=== PATIENT | female | born 1955 | race Caucasian/White ===

== ENCOUNTER 2020-11-16 08:24 | Emergency (ER) | payer MEDICARE, SELFPAY ==
--- NOTE | ~2020-11-16 | US_ITS ---
EXAMINATION: US venous doppler [facility] DATE: 11/16/2020 08:54 INDICATION: Left lower limb pain. TECHNIQUE: Grayscale ultrasound images without and with compression and Doppler ultrasound images of the left lower extremity veins were obtained. COMPARISON: None. FINDINGS: The visualized portions of left common femoral vein, profunda (deep) femoral vein, femoral vein, popl iteal vein, peroneal veins, posterior tibial veins, and greater saphenous vein outflow are patent. Th ere is a small Hutchison's cyst. IMPRESSION: 1. No deep venous thrombosis. 2. Small left Hutchison's cyst. Reviewed, dictated and finalized at location A.
--- NOTE | ~2020-11-16 | XR_ITS ---
EXAMINATION: XR knee LT 3V DATE: 11/16/2020 09:01 INDICATION: Nontraumatic anterior left knee pain TECHNIQUE: Anteroposterior, oblique and crosstable lateral views of the left knee were obtained COMPARISON: 04/02/2019 FINDINGS: Alignment is normal. No fracture. Tricompartmental osteoarthritis with marginal osteophytes in all 3 compartments. Moderate joint space narrowing is demonstrated at the medial compartment although there appears to be some remodeling of the articular surfaces of the medial femoral condyle and medial tib ial plateau suggesting this is likely severe with weightbearing. Moderate-sized left knee joint effus ion without layering lipohemarthrosis. Soft tissues are otherwise unremarkable. IMPRESSION: 1. Left knee tricompartmental osteoarthritis, advanced in the medial compartment with moderate-sized joint effusion. Reviewed, dictated and finalized at location A. IMPRESSION: 1. Left knee tricompartmental osteoarthritis, advanced in the medial compartmen t with moderate-sized joint effusion.
[2020-11-16 08:30] VITALS: BP 160/80; PULSE 99; RESP 18; TEMP 36.7; O2SAT 99
--- NOTE | 2020-11-16 08:56 | ED.LOWEXIN ---
HPI - Extremity Injury (Lower) General Chief Complaint: Extremity Injury, Lower Stated Complaint: left knee pain Time Seen by Provider: 11/16/20 08:26 History of Present Illness HPI Narrative: Patient is a 65-year-old female who presents ER with left knee pain. Reports history of chronic knee pain but was getting out of bed and had sudden increase in her pain today. She is concerned she may have a blood clot in her leg. No lower extremity swelling. No chest pain or shortness of breath. She has discomfort in both anterior and posterior aspects of the knee as well as the mid thigh. No known trauma. No recent surgery. Has not tried any pain medication. Pain is of the knee is worse with flexion and extension. Related Data Home Medications Medication Instructions Recorded Confirmed aspirin 81 mg tablet,delayed 81 mg PO DAILY 03/20/19 12/24/19 release multivitamin 1 tablet PO DAILY 03/20/19 12/24/19 syringe with needle, safety 3 mL #50 each 03/20/19 12/24/19 25 gauge x 1 Allergies Allergy/AdvReac Type Severity Reaction Status Date / Time No Known Allergies Allergy Verified 06/25/20 09:31 Review of Systems Constitutional: Constitutional: Denies chills, Denies fever(s) and Denies weakness Cardiovascular: Cardiovascular: Denies chest pain and Denies radiating jaw, neck or arm pain Respiratory: Respiratory: Denies cough and Denies dyspnea Musculoskeletal: Musculoskeletal: Reports arthralgias, Denies joint swelling and Denies muscle cramps Neurologic: Denies focal weakness and Denies numbness PMF Past Medical History Medical History (Updated 11/16/20 @ 09:57 by Zhen Durham MD) Adult hypothyroidism Benign essential hypertension CKD (chronic kidney disease) stage 3, GFR 30-59 ml/min Diabetes Dyslipidemia Hx of colonic polyps Surgical History Surgical History (Updated 11/16/20 @ 09:00 by Zhen Durham MD) History of colonoscopy Family History Family History Father Family history of pancreatic cancer Mother Family history of heart disease in male family member before age 55 Other Family history of cardiovascular disease Family history of malignant neoplasm Social History Social History Smoking status: Never smoker Alcohol intake: never Exam Narrative: Exam Narrative: GENERAL: Well-appearing, well-nourished, and in no acute distress. HEAD: Normocephalic, atraumatic. EXTREMITIES: Focused exam of left lower extremity reveals limited left knee flexion with tenderness over the anterior aspect inferior to the patella. There is also pain with varus and valgus stressing of the knee. Normal dorsalis pedis and posterior tibial pulses. Mild discomfort along the medial thigh with palpation. Mild discomfort with palpation of posterior knee with slight swelling which may represent cyst. Trace edema. SKIN: Warm, dry, no rash. NEURO: Alert and oriented x3. PSYCH: Normal mood and affect. Course Course Emergency Course: Patient informed of diagnosis and treatment plan. Will give orthopedic follow-up. Discharge home. Vital Signs Vital signs: Vital Signs Temperature 98.0 F 11/16/20 08:30 Pulse Rate 99 11/16/20 08:30 Respiratory Rate 18 11/16/20 08:30 Blood Pressure 160/80 H 11/16/20 08:30 Pulse Oximetry 99 11/16/20 08:30 Temperature 98.0 F 11/16/20 08:30 Pulse Rate 76 11/16/20 09:51 Respiratory Rate 14 11/16/20 09:51 Blood Pressure 146/68 H 11/16/20 09:51 Pulse Oximetry 96 11/16/20 09:51 MDM - Extremity Injury (Lower) Imaging Data Radiologist's impression: ITS Impressions Venous Doppler Study 11/16/20 08:55 IMPRESSION: 1. No deep venous thrombosis. 2. Small left Hutchison's cyst. Knee X-Ray 11/16/20 09:04 IMPRESSION: 1. Left knee tricompartmental osteoarthritis, advanced in the medial compartment with moderate-s
[2020-11-16] MEDS: IBUPROFEN 600 MG TABLET PO (09:10)
[2020-11-16 09:51] VITALS: BP 146/68; PULSE 76; RESP 14; O2SAT 96
[2020-11-16 10:10] VITALS: BP 129/59; PULSE 73; RESP 18; O2SAT 96
== END 2020-11-16 10:11 | disposition home or self-care (01) ==
PROVIDERS: Emergency Provider Emergency Medicine; PCP Internal Medicine
DX: M71.22 Synovial cyst of popliteal space [Baker], left knee (principal); M17.12 Unilateral primary osteoarthritis, left knee; E03.9 Hypothyroidism, unspecified; I12.9 Hypertensive chronic kidney disease with stage 1 through stage 4 chronic kidney disease, or unspecified chronic kidney disease; E11.22 Type 2 diabetes mellitus with diabetic chronic kidney disease; N18.30 Chronic kidney disease, stage 3 unspecified; Z79.82 Long term (current) use of aspirin; M79.605 Pain in left leg
CPT/HCPCS: 73562; 93971; 99284; A9270

== ENCOUNTER 2021-01-26 13:08 | Outpatient (CLI) | payer MEDICARE, SELFPAY ==
--- NOTE | ~2021-01-26 | NM_ITS ---
EXAMINATION: NM parathyroid imaging w spect DATE: 01/27/2021 07:17 INDICATION: Hyperparathyroidism, unspecified. TECHNIQUE: 19.2 mCi Tc99m sestamibi was administered intravenously. Anterior images of the neck were obtained immediately and at 2 hours. SPECT images of the neck were obtained. COMPARISON: None. FINDINGS: There is focal asymmetric persistent increased activity in the area of inferior right thyro id lobe. IMPRESSION: 1. Focal asymmetric persistent increased activity in the area of inferior right thyroid lobe suspicio us for parathyroid adenoma. Reviewed, dictated and finalized at location A. IMPRESSION: 1. Focal asymmetric persistent increased activity in the area of inferior right thyroid lobe suspicious for parathyroid adenoma.
== END 2021-01-26 13:09 | disposition home or self-care (01) ==
PROVIDERS: PCP Internal Medicine; Visit Provider Internal Medicine
DX: E21.3 Hyperparathyroidism, unspecified (principal)
CPT/HCPCS: 78071; A9500

== ENCOUNTER 2021-02-08 15:11 | Outpatient (CLI) | payer MEDICARE, SELFPAY ==
[2021-02-08 16:00] LABS: Calcium 10.7 mg/dL (8.4-10.2)
[2021-02-08 16:10] LABS: Parathyroid Intact 100.5 pg/mL (7.5-53.5)
[2021-02-08 16:54] LABS: Vitamin D 25 Hydroxy 46.8 ng/mL
== END 2021-02-08 15:12 | disposition home or self-care (01) ==
LOC: ANHLAB 15:18
PROVIDERS: PCP Internal Medicine
DX: E21.3 Hyperparathyroidism, unspecified (principal)
CPT/HCPCS: 36415; 82306; 82310; 83970

== ENCOUNTER 2021-03-22 10:35 | Outpatient (CLI) | payer MEDICARE, SELFPAY ==
[2021-03-22 11:41] LABS: Calcium 8.7 mg/dL (8.4-10.2)
== END 2021-03-22 10:36 | disposition home or self-care (01) ==
LOC: ANHLAB 10:39
PROVIDERS: PCP Internal Medicine
DX: E21.3 Hyperparathyroidism, unspecified (principal)
CPT/HCPCS: 36415; 82310

== ENCOUNTER 2021-09-12 09:17 | Outpatient (CLI) | payer MEDICARE, SELFPAY ==
[2021-09-12 09:59] LABS: Calcium 8.9 mg/dL (8.4-10.2)
[2021-09-12 10:10] LABS: Parathyroid Intact 62.8 pg/mL (7.5-53.5)
[2021-09-12 11:29] LABS: Vitamin D 25 Hydroxy 45.1 ng/mL
== END 2021-09-12 09:18 | disposition home or self-care (01) ==
PROVIDERS: PCP Internal Medicine
DX: E21.3 Hyperparathyroidism, unspecified (principal); E21.2 Other hyperparathyroidism
CPT/HCPCS: 36415; 82306; 82310; 83970

== ENCOUNTER 2023-08-21 13:39 | Outpatient (CLI) | payer MEDICARE, SELFPAY ==
--- NOTE | ~2023-08-21 | DEXA_ITS ---
Bone Density Report Name: CYNTHIA CASTILLO Age: 68 Sex: Female Ethnicity: White Date of : 1955 Indication: postmenopausal; screening for osteoporosis; height loss; history of glucocorticoids; Referring Provider: RITA REYES Study: Bone densitometry was performed. Exam Date: August 21, 2023 Accession number: [id number] Bone Density: Region BMD T-score Z-score Classification AP Spine(L1-L4) 1.145 0.9 3.0 Normal Femoral Neck (Left) 0.775 -0.7 1.2 Normal Total Hip (Left) 0.910 -0.3 1.3 Normal Femoral Neck (Right) 0.623 -2.0 -0.2 Osteopenia Total Hip (Right) 0.956 0.1 1.6 Normal Total Hip Mean 0.933 -0.1 1.5 Normal World Health Organization criteria for BMD impression classify patients as: Normal (T-score at or above -1.0), Osteopenia (T-score between -1.0 and -2.5), or Osteoporosis (T-score at or below -2.5). 10-year Fracture Risk(1): Major Osteoporotic Fracture 15% Hip Fracture 3.0% Reported Risk Factors: [place] (), Neck BMD=0.623, BMI=50.4, glucocorticoids (1) FRAX(R) Version 3.08. Fracture probability calculated for an untreated patient. Fracture probability may be lower if the patient has received treatment. Clinical Information Provided by Patient: Has taken Glucocorticoids Has used the following medications: Vitamin D, Calcium Patient maximum height was 61 Menopause Age: 48 No regular weight bearing exercise Drinks caffeinated beverages Onset of menses at age 11 Number of children 2 Impression: The patient has low bone mass, based on the Right Femoral Neck T-score. The patient has an estimated ten-year risk of hip fracture of 3% and an estimated ten-year risk of major fracture of 15%, based on the WHO FRAX algorithm. The patient has risk factors, including: history of glucocorticoid therapy. Discussion: BONE DENSITY IS LOW AT ONE OR MORE SKELETAL SITES. THE PATIENT'S BMD AND CLINICAL RISK FACTORS CONTRIBUTE TO THIS PATIENT'S INCREASED RISK OF FRACTURE. This patient's lowest T-score is low at one or more skeletal sites. It meets the World Health Organization's (WHO) criteria for ?low bone mass? (T-score between -1.0 and -2.5). The patient's 10-year risk of hip fracture as calculated by FRAX exceeds the threshold where pharmacological therapy is recommended by the National Osteoporosis Foundation (NOF). However, all treatment decisions require clinical judgment and consideration of individual patient factors, including patient preferences, comorbidities, previous drug use, risk factors not captured in the FRAX model (e.g., frailty, falls, vitamin D deficiency, increased bone turnover, interval significant decline in bone density) and possible under or overestimation of fracture risk by FRAX. The patient should follow a healthful lifestyle (good nu
== END 2023-08-21 13:40 | disposition home or self-care (01) ==
PROVIDERS: PCP Nurse Practitioner; Visit Provider Nurse Practitioner
DX: Z78.0 Asymptomatic menopausal state (principal)
CPT/HCPCS: 77080

== ENCOUNTER 2023-09-12 02:29 | Day surgery (SDC) | payer MEDICARE, SELFPAY ==
[2023-08-27 15:43] VITALS: BMI 50.5
[2023-09-12 09:45] VITALS: BP 176/81; PULSE 112; RESP 20; TEMP 36.4; O2SAT 98
[2023-09-12] MEDS: LACTATED RINGERS 1,000 ML 150 ML IV CONT (09:55)
[2023-09-12 09:57] LABS: Glucose Point of Care 121 mg/dl (65-105)
--- NOTE | 2023-09-12 10:28 | WPDANESEPPF ---
Anes - Initial Pre Proc Eval Procedure: Operation Date: 09/12/23 11:00 Proposed Procedures p Colonoscopy - Wang Espinoza MD Date/Time: 09/12/23 10:28 Surgeon: Wang Epsinoza MD Pre Op Diagnosis: MARYAM Patient Data Age: 68 Gender: F Height: 1.52 m Weight: 111.5 kg Last Vital Signs Temp 97.6 F 09/12/23 09:45 Pulse 112 H 09/12/23 09:45 Resp 20 09/12/23 09:45 BP 176/81 H 09/12/23 09:45 Pulse Ox 98 09/12/23 09:45 O2 Del Method Room Air 09/12/23 09:45 Allergies Allergy/AdvReac Type Severity Reaction Status Date / Time No Known Allergies Allergy Verified 09/12/23 09:44 Home Medications Medication Instructions Recorded Confirmed Type aspirin 81 mg tablet,delayed 81 mg PO DAILY 03/20/19 09/09/23 History release (Aspir-Low) blood sugar diagnostic #300 ea 07/12/21 09/09/23 Rx calcium carbonate 1,000 mg PO DAILY 01/18/22 09/09/23 History cholecalciferol (vitamin D3) 50 50 mcg PO DAILY 01/18/22 09/09/23 History mcg (2,000 unit) tablet verapamil 360 mg 24 hr See Rx Instructions .Route 12/25/22 09/09/23 Rx capsule,extended release .COMPLEX #100 caps metoprolol succinate 25 mg See Rx Instructions .Route 03/26/23 09/09/23 Rx tablet,extended release 24 hr .COMPLEX #100 tabs semaglutide 7 mg tablet 7 mg PO DAILY #90 tabs 06/04/23 09/09/23 Rx ferrous sulfate 324 mg (65 mg 324 mg PO BID #60 tabs 08/14/23 09/09/23 Rx iron) tablet,delayed release levothyroxine 100 mcg tablet 100 mcg PO DAILY #100 tabs 08/14/23 09/09/23 Rx losartan 100 mg tablet 100 mg PO DAILY #90 tabs 08/14/23 09/09/23 Rx metformin 1,000 mg tablet See Rx Instructions .Route 08/14/23 09/09/23 Rx .COMPLEX #90 tabs rosuvastatin 5 mg tablet See Rx Instructions .Route 08/14/23 09/09/23 Rx .COMPLEX #100 tabs Laboratory Tests 09/12/23 09:49 POC Capillary Glucose 121 H mg/dl (65-105) Patient hx anesthesia problems: none Family hx anesthesia problems: none Results Review: All pre-operative results and documents have been reviewed as part of the pre-operative evaluation. [facility] Past Medical History Medical History Adult hypothyroidism Benign essential hypertension CKD (chronic kidney disease) stage 3, GFR 30-59 ml/min Diabetes Dyslipidemia Hx of colonic polyps Hyperparathyroidism Screening mammogram, encounter for Surgical History Surgical History (Updated 08/31/23 @ 08:40 by Sue Kim CMA) H/O parathyroidectomy (03/08/21) History of History of colonoscopy History of gastric surgery History of hernia repair Family History Family History Father Family history of pancreatic cancer Mother Family history of heart disease in male family member before age 55 Other Family history of cardiovascular disease Family history of malignant neoplasm Social History Social History Smoking status: Never smoker Second hand tobacco smoke exposure: No Alcohol intake: never Substance use: never Substance use type: does not use Do You Feel Safe in your Home?: Yes Lack of Transportation: No Lack of Food: Never True Current Housing: I Have Housing Concerned About Future Housing: No Difficulty Paying Gas/Electric Bills: No Difficulty Paying for Meds: No Currently Unemployed: No Education: High School Diploma/GED Difficulty w/ Childcare or Family Care: No Living arrangements: with family Additional living arrangements comments: Occupation/Education: retired Gender identity (if verbalized by the patient): Female Sexual Orientation (if Verbalized by the Patient): Straight or Heterosexual Spiritual care concerns: No Anes - Eval Final PreProcedure Day of Procedure 09/12/23 10:28 Patient weight: morbidly obese Heart: re
--- NOTE | 2023-09-12 10:48 | PM.HPGS ---
History of Present Illness History of Present Illness Consent: Risks, benefits, and alternatives have been discussed and questions answered. Patient agrees to proceed with procedure. Chief complaint: MARYAM Narrative: Kate Agudelo is a 68 year old female here for colon screening, last one 2017 Review of Systems Review of Systems: All systems reviewed & are unremarkable except as noted in HPI and below PMFSH Past Medical History Medical History Adult hypothyroidism Benign essential hypertension CKD (chronic kidney disease) stage 3, GFR 30-59 ml/min Diabetes Dyslipidemia Hx of colonic polyps Hyperparathyroidism Screening mammogram, encounter for Surgical History Surgical History (Updated 08/31/23 @ 08:40 by Sue Kim CMA) H/O parathyroidectomy (03/08/21) History of History of colonoscopy History of gastric surgery History of hernia repair Family History Family History Father Family history of pancreatic cancer Mother Family history of heart disease in male family member before age 55 Other Family history of cardiovascular disease Family history of malignant neoplasm Social History Social History Smoking status: Never smoker Second hand tobacco smoke exposure: No Alcohol intake: never Substance use: never Substance use type: does not use Do You Feel Safe in your Home?: Yes Lack of Transportation: No Lack of Food: Never True Current Housing: I Have Housing Concerned About Future Housing: No Difficulty Paying Gas/Electric Bills: No Difficulty Paying for Meds: No Currently Unemployed: No Education: High School Diploma/GED Difficulty w/ Childcare or Family Care: No Living arrangements: with family Additional living arrangements comments: Occupation/Education: retired Gender identity (if verbalized by the patient): Female Sexual Orientation (if Verbalized by the Patient): Straight or Heterosexual Spiritual care concerns: No Meds Home Medications and Allergies Home Medications Medication Instructions Recorded Confirmed Type aspirin 81 mg tablet,delayed 81 mg PO DAILY 03/20/19 09/09/23 History release (Aspir-Low) blood sugar diagnostic #300 ea 07/12/21 09/09/23 Rx calcium carbonate 1,000 mg PO DAILY 01/18/22 09/09/23 History cholecalciferol (vitamin D3) 50 50 mcg PO DAILY 01/18/22 09/09/23 History mcg (2,000 unit) tablet verapamil 360 mg 24 hr See Rx Instructions .Route 12/25/22 09/09/23 Rx capsule,extended release .COMPLEX #100 caps metoprolol succinate 25 mg See Rx Instructions .Route 03/26/23 09/09/23 Rx tablet,extended release 24 hr .COMPLEX #100 tabs semaglutide 7 mg tablet 7 mg PO DAILY #90 tabs 06/04/23 09/09/23 Rx ferrous sulfate 324 mg (65 mg 324 mg PO BID #60 tabs 08/14/23 09/09/23 Rx iron) tablet,delayed release levothyroxine 100 mcg tablet 100 mcg PO DAILY #100 tabs 08/14/23 09/09/23 Rx losartan 100 mg tablet 100 mg PO DAILY #90 tabs 08/14/23 09/09/23 Rx metformin 1,000 mg tablet See Rx Instructions .Route 08/14/23 09/09/23 Rx .COMPLEX #90 tabs rosuvastatin 5 mg tablet See Rx Instructions .Route 08/14/23 09/09/23 Rx .COMPLEX #100 tabs Allergies Allergy/AdvReac Type Severity Reaction Status Date / Time No Known Allergies Allergy Verified 09/12/23 09:44 Vital Signs Vital Signs - 24 hr 09/12/23 09:45 Temperature 97.6 F Pulse Rate 112 H Respiratory Rate 20 Blood Pressure 176/81 H Pulse Oximetry 98 Oxygen Delivery Room Air Exam Const: General: comfortable and no acute distress HENMT: Face/Nose/Sinus: Normal nares present Eyes: General: appearance normal, both eyes and all related structures Neck: Neck: no JVD Resp: Auscultation: clear to auscultation bilaterally Cardio: Rate: regular
[2023-09-12 11:20] VITALS: BP 94/50; PULSE 87; RESP 23; O2SAT 98
[2023-09-12 11:30] VITALS: BP 115/64; PULSE 83; RESP 22; O2SAT 98
[2023-09-12 11:40] VITALS: BP 149/63; PULSE 81; RESP 24; O2SAT 100
== END 2023-09-12 11:52 | disposition home or self-care (01) ==
PROVIDERS: PCP Nurse Practitioner; Visit Provider Internal Medicine Gastroenterology
PROC: 0DJD8ZZ Inspection of Lower Intestinal Tract, Via Natural or Artificial Opening Endoscopic (ICD-10-PCS; CPT 45378; principal; 2023-09-12 11:00)
DX: Z12.11 Encounter for screening for malignant neoplasm of colon (principal); D12.5 Benign neoplasm of sigmoid colon; K64.8 Other hemorrhoids; D50.9 Iron deficiency anemia, unspecified; E03.9 Hypothyroidism, unspecified; I12.9 Hypertensive chronic kidney disease with stage 1 through stage 4 chronic kidney disease, or unspecified chronic kidney disease; E11.22 Type 2 diabetes mellitus with diabetic chronic kidney disease; N18.30 Chronic kidney disease, stage 3 unspecified; E21.3 Hyperparathyroidism, unspecified; Z79.85 Long-term (current) use of injectable non-insulin antidiabetic drugs; Z79.84 Long term (current) use of oral hypoglycemic drugs; Z79.82 Long term (current) use of aspirin; E66.01 Morbid (severe) obesity due to excess calories; Z68.42 Body mass index [BMI] 45.0-49.9, adult
CPT/HCPCS: 45385; 82948; 88305; J2704; J7120

== ENCOUNTER 2024-04-19 10:13 | Outpatient (CLI) | payer MEDICARE, SELFPAY ==
--- NOTE | ~2024-04-19 | MM_ITS ---
EXAMINATION: MM screening barbara BI w ehsan HISTORY: Screening TECHNIQUE: Craniocaudal and mediolateral oblique 3-D tomosynthesis images were obtained and synthetic 2-D images were generated. CAD analysis was submitted and interpreted. COMPARISON: No prior mammogram is available for comparison at this institution. BREAST PARENCHYMAL COMPOSITION: Not Dense: The breasts are almost entirely fatty. FINDINGS: There is no evidence of suspicious mass, calcification, or architectural distortion to sugg est malignancy in either breast. There has been no suspicious interval change. IMPRESSION: 1. No mammographic evidence of malignancy. 2. Recommend routine screening mammography in one year. BI-RADS Category 1: Negative Reviewed, dictated and finalized at location B. 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
--- OUTSIDE RECORDS SUMMARY | 2024-04-23 03:56 | XMS_ITS | Encounter Summary ---
Author Organization [facility] Address [address] [place] [address] Care Team Providers Care Apparatus Operator Name Role Phone Justin Olvera MD Primary Care Provider [phone] Encounter Details Date Type Department Care Team (Latest Contact Info) Description 09/20/2021 Orders Only [facility] [address] [place] [id number] [place] [id number] [address] [facility] [address] [place] [id number] Hyperparathyroidism (Primary Dx) Social History Tobacco Use Types Packs/Day Years Used Date Smoking Tobacco: Never Smokeless Tobacco: Never Alcohol Use Standard Drinks/Week Comments Never 0 (1 standard drink = 0.6 oz pur e alcohol) Sex and Gender Information Value Date Recorded Sex Assigned at Not on file Gender Identity Not on file Sexual Orientation Not on file documented as of this encounter Plan of Treatment Not on file documented as of this encounter Visit Diagnoses Diagnosis Hyperparathyroidism- Primary Hyperparathyroidism, unspecified documented in this encounter Care Teams Apparatus Operator Relationship Specialty Start Date End Date Justin Olvera MD [address] [place] [id number] PCP - General Internal Medicine 02/18/21 documented as of this encounter
--- OUTSIDE RECORDS SUMMARY | 2024-04-23 03:56 | XMS_ITS | Encounter Summary ---
Author Organization [facility] Address [address] [place] [address] Care Team Providers Care Manager Plant Name Role Phone Justin Olvera MD Primary Care Provider [phone] Reason for Visit * Auth/Cert Specialty Diagnoses / Procedures Referred By Francine t Referred To Contact Diagnoses [place] [id number] [facility] [address] [place] [address] Referral ID Status Reason Start Date Expiration Date Visits Re quested Visits Authorized [id number] 02/14/2021 1 1 Encounter Details Date Type Department Care Team (Late st Contact Info) Description 03/08/2021 11:00 AM CDT - 03/08/2021 2:30 PM CDT Surgery [facility] Operating Room [address] [place] [address] [place] [id number] [address] [facility] [address] [place] [address] RIGHT MINIMALLY INVASIVE PARATHYROIDECTOMY WITH INTRAOPERATIVE RECURRENT LARYNGEAL NERVE MONITORING WITH INTRAOPERATIVE PARATHYROID HORMONE MONITORING Surgery Details Date/Time Status Location OR Service Patient Class Case Class Case Type Trauma Case? 03/08/2021 11:00 AM Posted [facility] OR OR 22 General Surgery Surgical OP/Extended Care Elective No Panel 1 Procedure LRB Anes Op Region Wound Class Comments RIGHT MINIMALLY INVASIVE PARATHYROIDECTOMY WITH INTRAOPERATIVE RECURRENT LARYNGEAL NERVE MONITORING WITH INTRAOPERATIVE PARATHYROID HORMONE MONITORING Right General Neck Clean-I Surgeon Surgeon Role Service Panel Nathalia Tello MD Primary General Surgery 1 Special Needs RECURRENT LARYNGEAL NERVE MONITORING PT'S INSURANCE [employer] MEDICARE ADVANTAGE. LINK'D PER PEPPER [id number] MONITORING LINK'D WITH [place] MARISOL'D PER PEPPER NOTIFIED PSA AND [place] OF DATE CHANGE. documented in this encounter Social History Tobacco Use Types Packs/Day Years Used Date Smoking Tobacco: Never Smokeless Tobacco: Never Alcohol Use Standard Drinks/Week Comments Never 0 (1 standard drink = 0.6 oz pur e alcohol) Sex and Gender Information Value Date Recorded Sex Assigned at Not on file Gender Identity Not on file Sexual Orientation Not on file COVID-19 Exposure Response Date Recorded In the last month, have you been in contact with someone who was confirmed or suspected to have Coronavirus / COVID-19? No / Unsure 03/08/2021 9:15 AM CDT documented as of this encounter Last Filed Vital Signs Vital Sign Reading Time Taken Comments Blood Pressure 147/76 03/08/2021 2:30 PM CDT Pulse 75 03/08/2021 2:30 PM CDT Temperature 36 ??C (96.8 ??F) 03/08/2021 1:06 PM CDT Respiratory Rate 23 03/08/2021 2:30 PM CDT Oxygen Saturation 93% 03/08/2021 2:30 PM CDT Inhaled Oxygen Concentration - - Weight - - Height - - Body Mass Index - - documented in this encounter Discharge Instructions * Discharge Instructions* Alondra Lockhart RN - 03/08/2021 1:42 PM CDT You may resume showering starting tomorrow, 03/09/21 without needing to cover the incision. Wash thearea gently with regular soap, rinse it clean with running water, and pat it dry when you exit the shower (do not scrub). Minimal swelling and bruising at the incision is normal, and will resolve spontaneously in time. Ifthe swelling and bruising continues to increase, or is accompanied by increased pain at the area, please call and alert my office. Numbness and tingling of any the following: lips/face/nose/fingertips/toes may indicate a low bloodcalcium level. If this occurs, take two TUMS tablets and call [phone]. For the next five days, do not lie flat, even when sleeping at night. Please keep your head elevated above the level of your heart (approximately 20 degrees) by propping up pillows. Do not lift over 10 lbs for the next 10 days. A prescription for Oxycodone (narcotic pain medicine) has been sent to your pharmacy. Please feel free to refrain from filling this prescription if you feel that non-steroidal anti-inflammatory medications (NSAIDs) such as Tylenol or Ibuprofen will be adequate for pain control, as many patients feel narcotics are unnecessary. SAME DAY SURGERY/PHASE II RECOVERY DISCHARGE INSTRUCTIONS FOR GENERAL ANESTHESIA 1. Rest and gradually increase activity over next 24 to 48 hours. 2. Diet as tolerated over next 24 hours. Avoid spicy or acid foods. 3. No driving or making any important legal decisions for 24 hours - after general anesthesia and /or sedation. 4. Do not use power or electrical equipment for 24 hours (including dehairer, curling iron). After general anesthesia, it take 24 hours for reflexes to return to normal. 5. No smoking or other use of tobacco for 24 hours unless supervised. 6. Do not drink alcoholic beverages for 24 hours and while on prescription medication 7. For minor pain or discomfort: pain medications as ordered. 8. Take pain medication with food. Be aware that pain medication may cause constipation. 9. Drainage / dressing changes: see above 10. Additional Instructions: see above 11. If pain becomes intense or if temperature of 101 or greater, please call your physician. Signs of infection may include excessive warmth, redness or tenderness at site, unusual drainage orodor from wound. 12. For any problems or questions of an emergent nature, please call your physician at once. If unable to reach physician, come into the Emergency Room or call 911. 13. Call for follow up appointment with your physician. documented in this encounter Medications at Time of Discharge Medication Sig Dispensed Refills Start Date End Date acetaminophen (TYLENOL ARTHRITIS) 650 mg Extended Release tablet Take 650 mg by mouth every 6 hours as needed for Pain (knee pain). cholecalciferol, Vitamin D3, 125 mcg (5,000 unit) Capsule Take 5,000 Units by mouth daily. verapamiL (VERELAN) 360 mg Sustained Release 24 hour capsule Take 360 mg by mouth daily. 01/24/2021 Rybelsus 7 mg Tablet Take 7 mg by mouth daily. 01/31/2021 loratadine (CLARITIN) 10 mg tablet Take 10 mg by mouth 1 time daily as needed for Allergies. aspirin (ECOTRIN EC) 81 mg Tablet, Delayed Release (E.C.) Take 81 mg by mouth daily. 02/16/2020 levothyroxine 88 mcg tablet Take 88 mcg by mouth daily. 01/24/2021 losartan (COZAAR) 100 mg tablet Take 100 mg by mouth daily. Losartan potassium 01/08/2021 metFORMIN (GLUCOPHAGE) 1,000 mg tablet Take 1,000 mg by mouth daily. metoprolol succinate (TOPROL XL) 25 mg Extended Release 24 hour tablet Take 25 mg by mouth daily. rosuvastatin (CRESTOR) 5 mg tablet Take 5 mg by mouth daily at bedtime. oxyCODONE (ROXICODONE) 5 mg tabletIndications:Hype rparathyroidism Take 1 Tablet (5 mg) by mouth every 4 hours as needed for Pain. Max Daily Amount: 30 mg 30 Tablet 03/08/2021 03/13/2021 sennosides-docusate sodium (SENNA-S) 8.6-50 mg tablet Take 2 Tablets by mouth 2 times daily for 7 days. 28 Tablet 03/08/2021 03/15/2021 calcium as carbonate (OS-ALICIA) 1,250 mg (500 mg elemental) tablet Take 2 Tablets (1,000 mg) by mouth 3 times daily with meals for 14 days. 84 Tablet 03/08/2021 03/22/2021 documented as of this encounter H&P Notes * Nathalia Tello MD - 03/08/2021 10:01 AM CDT I have reviewed the last H&P and examined the patient today and there are no changes. CV exam: normal rate and regular rhythm. Pulm exam: normal pulmonary effort. To OR today for Right minimally invasive parathyroidectomy, possible bilateral neck exploration, intraoperative recurrent laryngeal nerve monitoring and intraoperative parathyroid hormone monitoring. documented in this encounter OR Notes * Operative Report - Nathalia Tello MD - 03/08/2021 1:16 PM CDT [facility] OPERATIVE REPORT - [id number] Date of Procedure: 03/08/2021 Name: Kate Agudelo : 1955 Sex: Female Admit Date: 03/08/2021 Admitting Physician: NATHALIA TELLO Attending Physician: NATHALIA TELLO Proceduralist/Surgeon: NATHALIA TELLO PRE-OPERATIVE DIAGNOSES: Hyperparathyroidism Primary POST-OPERATIVE DIAGNOSES: Hyperparathyroidism Primary PROCEDURES PERFORMED: Parathyroidectomy Venous catheterization for selective organ blood sampling Needle electromyography; cranial nerve supplied muscle(s), unilateral ASSISTANTS: First Brooks - REGGIE KEEN ESTIMATED BLOOD LOSS: < 5 mL FINDINGS: Right recurrent laryngeal nerve was identified and protected, demonstrating function at the termination of the dissection. PTH Values: PTH values for the case baseline was 472. At the 5-minute patrick PTH was 25.3. At the 10-minute patrick PTH was 19.4. At the 15 minute patrick, PTH was 16.8. SPECIMEN REMOVED: Blood-PTH baseline Parathyroid gland-right superior parathyroid biopsy Blood-5 minute post resection draw Blood-10 minute post resection draw Blood-15 minute post resection draw Parathyroid gland-right superior parathyroid COMPLICATIONS: No complications were noted ANESTHESIA: General General endotracheal tube SURGICAL WOUND CLASSIFICATION: Clean-I ASA CLASS: 3 ANTIBIOTIC PROPHYLAXIS: Cefazolin ANESTHESIOLOGIST: Anesthesiologist - Paulie Garcia MD Anesthesiologist - Angelia Torres MD STAFF: Payroll Benefits Clerk - NADIA RUBIN Perioperative Nurse - NARCISA RAMOS Digital Librarian - REGGIE KEEN Scrub - OSCAR ADKINS INDICATIONS: Kate Agudelo is a 65 year old female referred by Dr. Olvera for hyperparathyroidism; Kate Agudelo presents today for surgical correction of the same. TECHNIQUE: The patient was met in the preoperative holding bay where She consented for the operation. Risks and benefits of the operation were thoroughly discussed with the patient and she wished to proceed. The patient was taken back to the operative suite where she was placed in a supine position on the operative table. Patient was then induced with general anesthesia and intubated with endotracheal tube that was compatible with intraoperative laryngeal nerve monitoring. The patient was then placed into a modified beach chair position with all bony prominences padded appropriately and a shoulder roll was placed under the shoulders to extend the neck. Bilateral sequential compression devices were placed on both lower extremities. Watters catheter was placed and the arms were padded with foam and wrapped gently at the sides. Patient was then prepped and draped in standard sterile fashion. At this time, a time-out was performed confirming the patient's name, date, MRN, operation, preoperative antibiotics as well as team introductions and special equipment needed for the operation. A 3 cm incision was created fdc between the cricoid cartilage and the sternal notch in a Na fashion. This incision was placed at the medial border of the sternocleidomastoid to allow for a lateral approach to the paratracheal space. This was deepened with Bovie electrocautery to the subplatysmal plane. Sub-platysmal flaps were developed in all directions. The midline raphe was divided and the strap muscles were retracted to enter the right paratracheal space. After careful dissection, an enlarged parathyroid was identified in the superior position. A baseline PTH was obtained with direct venipuncture of the right internal jugular vein. The superior parathyroid gland was circumferentially dissected away from surrounding tissue and its vascular pedicle, clipped, and removed. This was sent to Pathology, which returned as hypercellular. PTH was then obtained at 5, 10 and 15 minutes, again through direct venipuncture of the right internal jugular vein. The PTH decreased at an appropriate level indicating a biochemical cure. During dissection the recurrent laryngeal nerve was identified and was tested using the Crawford monitoring device. With a2.0mA stimulus, there nerve generated normal action potential, waveform, velocity, and amplitude. With repetitive stimulation, there was no evidence of dampening of the signal indicating normal nerve function. The wound bed was irrigated, found to be hemostatic and packed with Surgical SNoW. The site was closed in a layered fashion. The platysma was re-approximated with a 3-0 Polysorb interrupted sutures. The skin was re-approximated using 4-0 Biosyn running suture. Exofin skin glue and Steri-Strips were placed above this. DISPOSITION: The patient tolerated the procedure well without any complications and was transferred to recovery. [id number] by NATHALIA TELLO MD, 03/08/2021 13:16 CDT (Approved) Created in [facility] Surgical CAPD * Aracelis-OP - Vanessa Leos RN - 02/23/2021 12:44 PM CDT Patient to obtain COVID testing at [place] per protocol to be done 03-03-21 for surgery on 03-08-21per Dr. Tello. DOS moved from 03/07 to 03/08/21 documented in this encounter Plan of Treatment Not on file documented as of this encounter Procedures Procedure Name Priority Date/Time Associated Diagnosis Comments POC GLUCOSE Routine 03/08/2021 1:19 PM CDT PTH, POST RESECTION Stat 03/08/2021 1 1:52 AM CDT PTH, POST RESECTION Stat 03/08/2021 1 1:47 AM CDT PTH, POST RESECTION Stat 03/08/2021 1 1:42 AM CDT PATHOLOGY Pathology 03/08/2021 11:39 AM CDT PTH, BASELINE Stat 03/08/2021 11:26 AM CDT PARATHYROIDECTOMY 03/08/2021 11: 00 AM CDT HYPERARATHYROIDI SM Special Needs RECURRENT LARYNGEAL NERVE MONITORING PT'S INSURANCE [facility] MEDICARE ADVANTAGE. LINK'D PER PEPPER [id number] MONITORING LINK'D WITH [facility] MARISOL'D PER PEPPER NOTIFIED PSA AND [place] OF DATE CHANGE. POC GLUCOSE Routine 03/08/2021 10:08 AM CDT documented in this encounter Results * (ABNORMAL) POC GLUCOSE (03/08/2021 1:19 PM CDT) GLUCOSE POC 116(H) 74 - 99 mg/dL 03/08/2021 1:19 PM CDT [facility] POINT OF CARE SEWING MACHINE MAINTENANCE MECHANIC NAME POC SUZIE SALINAS 03/08/2021 1:19 PM CDT [facility] POINT OF CARE Blood, whole 03/08/2021 1:19 PM CDT 03/08/2021 1:23 PM CDT Nathalia Tello MD POINT OF CARE TE STING [facility] POINT OF CARE CLIA # [id number] [place] [address] * PTH, INTEROPERATIVE POST RESECTION (03/08/2021 11:52 AM CDT) Pathologist [facility] PTH, INTACT, POSTRESECTION 16.8 pg/mL 03/08/2021 12:32 PM CDT [facility] PTH % OF BASELINE 4 % 021 12:[address] [facility] TIME POST INIT RESECTION 15 Minutes 03/08/2021 12:32 PM CD[address] [facility] SERVICES [facility] Blood BLOOD SPECIMEN / Unknown Venipuncture / Unknown 03/08/2021 11:52 AM CDT 03/08/2021 12:02 PM CDT Narrative [facility] - 03/08/2021 12:32 PM CDT Successful is < or = 50% of the baseline value. Nathalia Tello MD CHEMISTRY ORDERA BLES [facility] CLIA# [id number] [place] [address] * PTH, INTEROPERATIVE POST RESECTION (03/08/2021 11:47 AM CDT) Pathologist [facility] PTH, INTACT, POSTRESECTION 19.4 pg/mL 03/08/2021 12:[address] [facility] PTH % OF BASELINE 4 % 021 12:22 PM CDT [facility] TIME POST INIT RESECTION 10 Minutes 03/08/2021 12:22 PM [address] [facility] Blood BLOOD SPECIMEN / Unknown Venipuncture / Unknown 03/08/2021 11:47 AM CDT 03/08/2021 12:01 PM CDT Narrative [facility] - 03/08/2021 12:22 PM CDT Successful is < or = 50% of the baseline value. Nathalia Tello MD CHEMISTRY ORDERA BLES Performing Organization Address [facility]/ZIP Co de Phone Number [facility] CLIA# [id number] [address] [place] [address] * PTH, INTEROPERATIVE POST RESECTION (03/08/2021 11:42 AM CDT) PTH, INTACT, POSTRESECTION 25.3 pg/mL 03/08/2021 12:14 PM CDT [facility] PTH % OF BASELINE 5 % 021 12:14 PM [address] [facility] TIME POST INIT RESECTION 5 Minutes 03/08/2021 12:14 PM [address] [facility] [employer] [facility] Blood BLOOD SPECIMEN / Unknown Venipuncture / Unknown 03/08/2021 11:42 AM CDT 03/08/2021 11:52 AM CDT Narrative [facility] - 03/08/2021 12:14 PM CDT Successful is < or = 50% of the baseline value. Nathalia Tello MD CHEMISTRY ORDERA BLES Performing Organization Address City/[facility]/ZIP Co de Phone Number [facility] [employer] [facility] CLIA# [id number] [place] [address] * PATHOLOGY (03/08/2021 11:39 AM CDT) CASE REPORT Surgical Pathology Report ? Case: [id number] ? Authorizing Provider: ??Nathalia Tello MD ??Collected: ? 03/08/2021 11:39 AM ? Ordering Location: ? [facility] ? Received: ?03/08/2021 11:50 AM ? Operating Room ? Pathologist: ? Gema Regalado MD ? Specimens: ?? A) - Parathyroid gland, right superior parathyroid biopsy ? B) - Parathyroid gland, right superior parathyroid ? 1 12:49 PM [address] [facility] [employer] [facility] FINAL DIAGNOSIS Parathyroid gland, right superior, excisions (x2): -Hypercellular parathyroid, consistent with parathyroid adenoma eb 1 12:49 PM [facility] DESCRIPTION Received fresh labeled with the patient's identifying information and right superior parathyroid is a 0.01 g, 4 x 2 x 1 mm fragment of crawford tissue. Touch preparation is made. The entire specimen submitted for frozen section and then submitted in cassette A1. Specimen B is received in formalin labeled the patient's name and right superior parathyroid . Received is a 0.49 g, 1.3 x 1.1 x 1.0 cm crawford-red nodule, bisected, entirely submitted in B1. 12:49 PM T [facility] MICROSCOPIC DESCRIPTION Permanent sections confirm the frozen section diagnosis. The first specimen represents parathyroid tissue. The second specimen shows hypercellular parathyroid tissue with a rim of normal parathyroid 12:49 PM [facility] INTRAOPERATIVE CONSULTATION Parathyroid, right superior, frozen section: -Parathyroid tissue eb 12:49 PM [facility] OPERATIVE PROCEDURE 1: PARATHYROIDECTOMY 12:49 PM T [facility] CLINICAL INFORMATION HYPERARATHYROIDISM 12:49 PM [facility] COMMENT Immunohistochemical stains were performed, if any, and interpreted at [facility] ([facility]) Laboratory with appropriately staining controls. This test was developed and its performance characteristics determined by [facility] Lab. It has not been cleared or approved by the US Food and Drug Administration. The FDA does not require this test to go through premarket FDA review. This test is used for clinical purposes, and should not be regarded as investigational or for research. This lab is certified under CLIA to perform high complexity testing. Estrogen and progesterone receptor staining has not been validated in our lab on decalcified tissue; decalcification may decrease immunoreactivity for these and other antigens. 12:49 PM T [facility] Tissue (Parathyroid gland) Collection / Unknown 03/08/2021 11:39 AM CDT 03/08/2021 11:50 AM CDT Tissue specimen (specimen) (Parathyroid gland) Collection / Unknown 03/08/2021 12:34 PM CDT 03/08/2021 1:50 PM CDT Nathalia Tello MD PATHOLOGY/CYTOLO GY ORDERABLES Performing Organization Address City/[facility]/ZIP Co de Phone Number [facility] CLIA# [id number] [place] [address] * PTH INTEROPERATIVE BASELINE (03/08/2021 11:26 AM CDT) [facility] PTH, INTACT, BASELINE 472.0 pg/mL 03/08/2021 12:01 PM CDT [facility] Blood BLOOD SPECIMEN / Unknown Venipuncture / Unknown 03/08/2021 11:26 AM CDT 03/08/2021 11:39 AM CDT Nathalia Tello MD CHEMISTRY ORDERA BLES Performing Organization Address City/[facility]/ZIP Co de Phone Number [facility] CLIA# [id number] [place] [address] * (ABNORMAL) POC GLUCOSE (03/08/2021 10:08 AM CDT) [facility] GLUCOSE POC 106(H) 74 - 99 mg/dL 03/08/2021 10:08 AM CDT [facility] POINT OF CARE SEWING MACHINE MAINTENANCE MECHANIC NAME POC NARGIS GASTELUM 03/08/2021 10:08 AM CDT [facility] POINT OF CARE Blood, whole 03/08/2021 10:0 8 AM CDT 03/08/2021 10:34 AM CDT Nathalia Tello MD POINT OF CARE TE STING Performing Organization Address City/[facility]/ZIP Co de Phone Number [facility] POINT OF CARE CLIA # [id number] [place] [address] * 2019 NOVEL CORONAVIRUS (COVID-19) PCR DETECTION (03/03/2021 2:07 PM CDT) COVID-19 PCR NOT DETECTED Not Detected 03/04/20 2:25 AM CDT [facility] PERFORMING LAB [facility] 03/04/2021 2:25 AM CDT [facility] Upper Respiratory ENTIRE NASOPHARYNX / Unknown Collection / Unknown 03/03/2021 2:07 PM CDT 03/03/2021 9:34 PM CDT Narrative [facility] [[email or web address]] 03/04/2021 2:25 AM CDT This test has been authorized by the FDA under an Emergency Use Authorization for use by authorized laboratories.?? This test has been validated in accordance with the FDA's guidance regarding Coronavirus Disease-2019 testing.?? Optimum specimen types and timing for peak viral levels during infection have not been determined.?? A negative RT-PCR result does not rule out infection with the 2019-Novel Coronavirus. Nathalia Tello MD MICROBIOLOGY - G ENERAL ORDERABLES [facility] CLIA# [id number] [place] [address] documented in this encounter Visit Diagnoses Not on filedocumented in this encounter Administered Medications Inactive Administered Medications - up to 3 most recent administrations Medication Order MAR Action Action Date Dose Rate Site bupivacaine PF (SENSORCAINE MPF) 2.5 mg/mL (0.25%) injection INTRA-PROCEDURE PRN, Starting on Sun03/08/21 at 1216, Until Sun03/08/21 at 1254, Routine, Intra-op Given 03/08/2021 12:16 PM CDT 2 mL Operative Site fentaNYL PF (SUBLIMAZE) 50 mcg/mL injection 25 mcg 25 mcg, IV, POST-PROCEDURE Q 5 MINUTES PRN, 4 doses, Starting on Sun03/08/21 at 1004, Until Sun03/08/21 at 1903, Pain, Routine, PACU HYDROmorphone (DILAUDID) 2 mg/mL injection 0.4 mg 0.4 mg, IV, POST-PROCEDURE Q 5 MINUTES PRN, 10 doses, Starting on Sun03/08/21 at 1004, Until Sun03/08/21 at 1903, Pain, Routine, PACU lactated ringers infusion IV, at 100 mL/hr, CONTINUOUS, Starting on Sun03/08/21 at 0915, Until Sun03/08/21 at 1903, Routine, Pre-op New Bag 03/08/2021 12:17 PM CDT New Bag 03/08/2021 10:30 AM CDT lactated ringers infusion IV, at 125 mL/hr, POST-PROCEDURE CONTINUOUS, Starting on Sun03/08/21 at 1015, Until Sun03/08/21 at 1903, Routine, PACU lidocaine 1 % (XYLOCAINE) injection 5 mg 5 mg (0.5 mL), Infiltration, PRE-PROCEDURE ONCE, 1 dose, Starting on Sun03/08/21 at 0911, Until Sun03/08/21 at 1903, Routine, Pre-op lidocaine-EPINEPHrine (XYLOCAINE-EPI) 1 %-1:100,000 injection INTRA-PROCEDURE PRN, Starting on Sun03/08/21 at 1217, Until Sun03/08/21 at 1254, Routine, Intra-op Given 03/08/2021 12:17 PM CDT 2 mL Oper ative Site naloxone (NARCAN) 0.4 mg/mL injection 0.1 mg 0.1 mg, IV, SEE ADMIN INSTRUCTIONS, Starting on Sun03/08/21 at 1004, Until Sun03/08/21 at 1903, Routine, PACU ondansetron (ZOFRAN) 4 mg/2 mL injection 4 mg 4 mg, IV, POST-PROCEDURE ONCE PRN, 1 dose, Starting on Sun03/08/21 at 1004, Until Sun03/08/21 at 1903, Nausea/Emesis, Routine, PACU prochlorperazine (COMPAZINE) injection 5 mg 5 mg, IV, POST-PROCEDURE ONCE PRN, 1 dose, Starting on Sun03/08/21 at 1004, Until Sun03/08/21 at 1903, Nausea/Emesis, Routine, PACU documented in this encounter Active and Recently Administered Medications Times are shown in CDT. Scheduled Medication Order 03/06/2021 03/07/2021 03/08/2021 ceFAZolin (ANCEF) 2,000 mg in dextrose (iso-osmotic) 100 mL IVPB (PREMIX) (COMPLETED) 2,000 mg, IV, PRE-PROCEDURE ONCE, 1 dose, Starting on Sun03/08/21 at 0911, Until Sun03/08/21 at 1055, Routine, Pre-op, Antibiotic Indication: Surgical prophylaxis 1055 (Given - Provid er: Noirs Bourne CRNA) lidocaine 1 % (XYLOCAINE) injection 5 mg 5 mg (0.5 mL), Infiltration, PRE-PROCEDURE ONCE, 1 dose, Starting on Sun03/08/21 at 0911, Until Sun03/08/21 at 1903, Routine, Pre-op naloxone (NARCAN) 0.4 mg/mL injection 0.1 mg 0.1 mg, IV, SEE ADMIN INSTRUCTIONS, Starting on Sun03/08/21 at 1004, Until Sun03/08/21 at 1903, Routine, PACU Continuous Medication Order 03/06/2021 03/07/2021 03/08/2021 lactated ringers infusion IV, at 100 mL/hr, CONTINUOUS, Starting on Sun03/08/21 at 0915, Until Sun03/08/21 at 1903, Routine, Pre-op 1030 (New Bag - Prov ider: Noris Bourne CRNA)1217 (New Bag - Provider: Noris Bourne CRNA)1254 (Fluid Volume - Provider: Noris Bourne CRNA) lactated ringers infusion IV, at 125 mL/hr, POST-PROCEDURE CONTINUOUS, Starting on Sun03/08/21 at 1015, Until Sun03/08/21 at 1903, Routine, PACU 1015 (Due) PRN Medication Order 03/06/2021 03/07/2021 03/08/2021 bupivacaine PF (SENSORCAINE MPF) 2.5 mg/mL (0.25%) injection (CANCELED) INTRA-PROCEDURE PRN, Starting on Sun03/08/21 at 1216, Until Sun03/08/21 at 1254, Routine, Intra-op 1216 (Given - Provid er: Nathalia Tello MD) fentaNYL PF (SUBLIMAZE) 50 mcg/mL injection 25 mcg 25 mcg, IV, POST-PROCEDURE Q 5 MINUTES PRN, 4 doses, Starting on Sun03/08/21 at 1004, Until Sun03/08/21 at 1903, Pain, Routine, PACU HYDROmorphone (DILAUDID) 2 mg/mL injection 0.4 mg 0.4 mg, IV, POST-PROCEDURE Q 5 MINUTES PRN, 10 doses, Starting on Sun03/08/21 at 1004, Until Sun03/08/21 at 1903, Pain, Routine, PACU lidocaine-EPINEPHrine (XYLOCAINE-EPI) 1 %-1:100,000 injection (CANCELED) INTRA-PROCEDURE PRN, Starting on Sun03/08/21 at 1217, Until Sun03/08/21 at 1254, Routine, Intra-op 1217 (Given - Provid er: Nathalia Tello MD - Comment: intradermal) ondansetron (ZOFRAN) 4 mg/2 mL injection 4 mg 4 mg, IV, POST-PROCEDURE ONCE PRN, 1 dose, Starting on Sun03/08/21 at 1004, Until Sun03/08/21 at 1903, Nausea/Emesis, Routine, PACU prochlorperazine (COMPAZINE) injection 5 mg 5 mg, IV, POST-PROCEDURE ONCE PRN, 1 dose, Starting on Sun03/08/21 at 1004, Until Sun03/08/21 at 1903, Nausea/Emesis, Routine, PACU documented in this encounter Care Teams Manager Plant Relationship Specialty Start Date End Date Justin Olvera MD [address] [facility] [employer] [address] PCP - General Internal Medicine 02/18/21 documented as of this encounter
--- OUTSIDE RECORDS SUMMARY | 2024-04-23 03:56 | XMS_ITS | Clinical Summary ---
Author Organization [facility] Address [address] [place] [address] Care Team Providers Care Vice President Business & Corporate Development Name Role Phone Justin Olvera MD Primary Care Provider [phone] Allergies No known active allergies Medications Medication Sig Dispensed Refills Start Date End Date Status aspirin (ECOTRIN EC) 81 mg Tablet, Delayed Release (E.C.) Take 81 mg by mouth daily. 02/16/2020 Active levothyroxine 88 mcg tablet Take 88 mcg by mouth daily. 01/24/2021 Active losartan (COZAAR) 100 mg tablet Take 100 mg by mouth daily. Losartan potassium 01/08/2021 Active metFORMIN (GLUCOPHAGE) 1,000 mg tablet Take 1,000 mg by mouth daily. Active metoprolol succinate (TOPROL XL) 25 mg Extended Release 24 hour tablet Take 25 mg by mouth daily. Active rosuvastatin (CRESTOR) 5 mg tablet Take 5 mg by mouth daily at bedtime. Active acetaminophen (TYLENOL ARTHRITIS) 650 mg Extended Release tablet Take 650 mg by mouth every 6 hours as needed for Pain (knee pain). Active cholecalciferol, Vitamin D3, 125 mcg (5,000 unit) Capsule Take 5,000 Units by mouth daily. Active verapamiL (VERELAN) 360 mg Sustained Release 24 hour capsule Take 360 mg by mouth daily. 01/24/2021 Active Rybelsus 7 mg Tablet Take 7 mg by mouth daily. 01/31/2021 Active loratadine (CLARITIN) 10 mg tablet Take 10 mg by mouth 1 time daily as needed for Allergies. Active Active Problems Problem Noted Date Diagnosed Date Hyperparathyroidism 02/11/2021 Social History Tobacco Use Types Packs/Day Years Used Date Smoking Tobacco: Never Smokeless Tobacco: Never Alcohol Use Standard Drinks/Week Comments Never 0 (1 standard drink = 0.6 oz pur e alcohol) Sex and Gender Information Value Date Recorded Sex Assigned at Not on file Gender Identity Not on file Sexual Orientation Not on file Last Filed Vital Signs Vital Sign Reading Time Taken Comments Blood Pressure 122/88 09/22/2021 2:02 PM CDT Pulse 78 09/22/2021 2:02 PM CDT Temperature 37.1 ??C (98.7 ??F) 09/22/2021 2:02 PM CD T Respiratory Rate 20 03/08/2021 2:45 PM CDT Oxygen Saturation 96% 09/22/2021 2:02 PM CDT Inhaled Oxygen Concentration - - Weight 119.3 kg (263 lb 1.6 oz) 09/22/2021 2:02 PM CDT Height 152.4 cm (5') 09/22/2021 2:02 PM CDT Body Mass Index 51.38 09/22/2021 2:02 PM CDT Plan of Treatment Health Maintenance Due Date Last Done Comments DTAP/TDAP/TD VACCINES (1 - Tdap) 1972 BREAST CANCER SCREENING 1993 COLORECTAL SCREENING 1998 Colorectal Cancer Screening 1998 FIT-DNA Q 3 years 1998 FIT/FOBT Q 1 year 1998 Flex Sig/CT Colonography Q 5 years 1998 ZOSTER VACCINE (1 of 2) 2003 OSTEOPOROSIS SCREENING 2018 PNEUMOCOCCAL VACCINE 65+ YEARS (1 of 1 - PCV) 04/18/20 18 INFLUENZA VACCINE (#1) 2023 02/20/2019 RSV VACCINE (60+ or ) (1 - 1-dose 75+ series) 2028 Medical Devices Implanted Type Area Materials Mgmt Tech Device Identifier Shelf Expiration Date Model / Serial / Lot Clip Ligating Horizon Ti Sm [id number] Rp - [id number] Implanted:Qty : 1 on 03/08/2021 by Keanu Quinn MD at [facility] Right: Neck TELEFLEX- [employer]EC[employer] SYS [id number] RP / / Clip Ligating Horizon Med Ti [id number] - Csc - [id number] Implanted:Qty : 1 on 03/08/2021 by Keanu Quinn MD at [facility] Right: Neck TELEFLEX- [employer]EC[employer]URE SYS [id number] / / Hemostat Surg Snow 2x4in 2081 - [id number] Implanted:Qty : 1 on 03/08/2021 by Keanu Quinn MD at [facility] Right: Neck [employer] 01/04/2023 2082 / / [id number] Directives For more information, please contact: [phone] * Full Code (Latest Code Status on File) Date Activated Date Inactivated Comments 03/08/2021 10:05 AM 03/08/2021 7:08 PM * Full Code Date Activated Date Inactivated Comments 03/08/2021 9:11 AM 03/08/2021 10:04 AM Care Teams Vice President Business & Corporate Development Relationship Specialty Start Date End Date Justin Olvera MD [address] [place] [address] PCP - General Internal Medicine 02/18/21
--- OUTSIDE RECORDS SUMMARY | 2024-04-23 03:56 | XMS_ITS | Encounter Summary ---
Author Organization [facility] Address [address] [place] [address] Care Team Providers Care Multifocal Button Inspector Name Role Phone Justin Olvera MD Primary Care Provider [phone] Reason for Visit * Reason Comments Imm Inj Encounter Details Date Type Department Care Team (Late st Contact Info) Description 02/20/2019 10:00 AM CDT Office Visit [facility] [address] [place] [address] Provider, Alan Exp Namelidya Need for vaccination (Primary Dx) Social History Tobacco Use Types Packs/Day Years Used Date Smoking Tobacco: Never Assessed Sex and Gender Information Value Date Recorded Sex Assigned at Not on file Gender Identity Not on file Sexual Orientation Not on file documented as of this encounter Progress Notes * Emilie Garcia APRN-CNP - 02/20/2019 10:11 AM CDT Patient given influenza vaccine today Reviewed JAZLYN No issues noted on JAZLYN JAZLYN scanned into chart Patient tolerated procedure without difficulty Denies any further questions Patient instructed to remain in building for 15 minutes and to return to clinic if they notice any reaction Patient instructions: May use Ibuprofen as needed for pain at injection site if needed Cold compress to injection site as needed documented in this encounter Plan of Treatment Not on file documented as of this encounter Visit Diagnoses Diagnosis Need for vaccination- Primary Need for prophylactic vaccination and inoculation against unspecified single disease documented in this encounter Care Teams Multifocal Button Inspector Relationship Specialty Start Date End Date Justin Olvera MD [address] [place] [address] PCP - General Internal Medicine 02/20/19 documented as of this encounter
--- OUTSIDE RECORDS SUMMARY | 2024-04-23 03:56 | XMS_ITS | Encounter Summary ---
Author Organization [facility] Address [address] [place] [address] Care Team Providers Care Cavalry Officer Name Role Phone Justin Olvera MD Primary Care Provider [phone] Reason for Visit * Auth/Cert Specialty Diagnoses / Procedures Referred By Francine andre Referred To Contact Diagnoses [place] [address] [facility] [address] [place] [address] Referral ID Status Reason Start Date Expiration Date Visits Re quested Visits Authorized [id number] 02/14/2021 1 1 Encounter Details Date Type Department Care Team (Late st Contact Info) Description 03/08/2021 10:29 AM CDT Anesthesia Event [facility] Operating Room [address] [place] [address] [place] [address] [place], [place] [id number] Sara Chadwick, MATT [address] [facility] [address] [place] [id number] Anesthesia Record Procedure Summary Procedure Name Responsible Anesthesiologist Anesthesia Start Time Anesthesia Stop Time RIGHT MINIMALLY INVASIVE PARATHYROIDECTOMY WITH INTRAOPERATIVE RECURRENT LARYNGEAL NERVE MONITORING WITH INTRAOPERATIVE PARATHYROID HORMONE MONITORING (Right: Neck) Angelia Torres MD 03/08/21 1029 03/08/21 13 07 Events Date Time Event Comment 03/08/2021 1015 1029 In Room This event disp lays the In Room time documented in the Surgical Log. Deleting this event will not remove it from the log but will remove it from the Grid and Graph timeline. 1029 An Start 1029 An Start Data 1032 Pre-Induction Immediate pre- induction anesthetic assessment performed. Vital signs as noted on graphic. 1037 An Induction 1043 An Intubation 1102 Anesthesia Ready 1115 Procedure Start This event d isplays the Procedure Start time documented in the Surgical Log. Deleting this event will not remove it from the log but will remove it from the Grid and Graph timeline. 1235 Procedure Stop This event di splays the Procedure Stop time documented in the Surgical Log. Deleting this event will not remove it from the log but will remove it from the Grid and Graph timeline. 1248 An Extubation Emergence unev entful Awake, spontaneous respirations. Adequate muscle strength demonstrated Adequate tidal volume. Orapharynx suctioned. Extubated with positive pressure ventilation. 1251 an stop data 1254 Out of Room This event disp lays the Out of Room time documented in the Surgical Log. Deleting this event will not remove it from the log but will remove it from the Grid and Graph timeline. 1307 An Stop Meds Name Total fentaNYL (SUBLIMAZE) PF 50??mcg/mL injec tion 100 mcg lidocaine PF (XYLOCAINE MPF) 2% injectio n 5 mL propofol (DIPRIVAN) injection 440 mg dexamethasone (DECADRON) 4 mg/mL injecti on 8 mg ondansetron (ZOFRAN) 4 mg/2 mL injection 4 mg phenylephrine (KENNY-SYNEPHRINE) 10 mg in sodium chloride 0.9% 25 mL infusion 3.55 mg succinycholine (ANECTINE) 140 mg/7 mL iv syringe 180 mg phenylephrine (KENNY-SYNEPHRINE) 100 mcg/m L injection 500 mcg ceFAZolin (ANCEF) 2,000 mg in dextrose ( iso-osmotic) 100 mL IVPB (PREMIX) 2,000 mg hydromorPHONE (DILAUDID) 2??mg/mL inject ion 0.4 mg glycopyrrolate (ROBINUL) 0.2 mg/ mL inje ction 0.2 mg lactated ringers infusion 1,600 mL * Agents Name Air Sevoflurane % Sevoflurane O2 * Blood No blood administrations on file. Lines, Drains, and Airways Type Details Placement Removal Peripheral IV Orientation: Left, Posterior; Location: Hand; Gauge: 20 gauge; Insertion Attempts: 1; Patient Tolerance: tolerated well 03/08/21 1010 by Alondra Lockhart RN 03/08/21 1510 by Alondra Lockhart RN Endotracheal Airway Type: NIM ETT; Cuff Pressure: cuff inflated; Size: 6; Site: mouth; Attempts: 3; FOV: I (with glidescope); cm: 22; Device: Video Laryngoscope, Stylet (Unable to advance ETT with glidescope stylet. Used regular stylet with very sharp angle.); Blade: 3; Secured: secured with tape; Verification: Auscultated bilateral breath sounds, Equal chest movement, Continuous waveform capnography 03/08/21 1043 by Noris Bourne CRNA 03/08/21 1251 by Noris Bourne CRNA Incision 03/08/21; 1209; surgical incision; other (comment); neck; 03/09/21; 0503 03/08/21 1209 by Gissel Tran RN 03/09/21 0503 by PROVIDER, DISCHARGE PATIENT documented in this encounter Social History Tobacco [...] AM CDT documented as of this encounter OR Notes * Anesthesia Postprocedure Evaluation - Raymundo Velazquez MD - 03/08/2021 2:30 PM CDT Post Anesthesia Evaluation Vitals: Vitals Value Taken Time BP 147/76 03/08/21 1428 Temp 36 ??C 03/08/21 1306 Resp 23 03/08/21 1430 SpO2 93 % 03/08/21 1430 Pulse 75 03/08/21 1430 Heart Rate 77 bpm 03/08/21 1430 Vitals shown include unvalidated device data. Pain Rating: Anesthesia Post Evaluation Patient participation: patient was able to participate in the post op evaluation Level of consciousness: 0 = alert, responsive, answers simple questions appropriately, able to perform simple tasks Pain management: adequate Airway patency: patent Nausea or Vomiting: none Anesthetic complications: no Cardiovascular status: regular rate and rhythm Respiratory status: no respiratory symptoms Hydration status: well hydrated Raymundo Crane MD * Anesthesia Handoff - Noris Bourne CRNA - 03/08/2021 1:07 PM CDT Post-Anesthetic transfer of care report elements to appropriate post-anesthesia recovery environment completed in accordance with procedure. I completed my handoff to the receiving nurse during which we: 1. Identified the patient 2. Identified the responsible provider 3. Reviewed the pertinent medical history 4. Discussed the surgical course 5. Reviewed intra-op anesthesia management and issues during anesthesia 6. Set expectations for post-procedure period 7. Orders as necessary and appropriate for continuation of care are present in Epic. 8. Allowed opportunity for questions and acknowledgement of understanding. Vital Signs: BP: 130/69 (03/08/2021 1:06 PM) Pulse: 94 (03/08/2021 1:06 PM) Temp: 36 ??C (03/08/2021 1:06 PM) Resp: 12 (03/08/2021 1:06 PM) SpO2: 94 % (03/08/2021 1:06 PM) 1:07 PM Noris Borune CRNA * Anesthesia Preprocedure Evaluation - Paulie Garcia MD - 03/03/2021 1:25 PM CDT Location of Pre-Procedure Assessment: PSA-Authorization for Anesthetic. Anesthesia History: anesthesia history negative. Endocrine History: History of: Diabetes. Diabetes type: type 2.Insulin use: not using insulin. History of: Thyroid problem (partial thyroidectomy). Thyroid disease type: hypothyroidism. Renal History: ROS NEG . Pulmonary History: No shortness of breath History of: Sleep Apnea. Sleep apnea interventions: obstructive and CPAP.Non-Tobacco Dependence No Tobacco Use Cardiovascular History: hyperlipidemiaHistory of: Hypertension. Negative history of: past NM. GI/Hepatic History: negative GI/hepatic ROS.Negative history of: Alcohol use. Negative history of recreational No addiction problem. Neuro/Psych History: neg neuro/psych ROS.Negative history of: TIA.Negative history of: CVA. Negative history for: Seizures. Musculoskeletal History: History of: Osteoarthritis. Hematologic/Oncologic History: negative hematology/oncology ROS. Obstetric History: Nutrition Status: severe morbid obesity Other Findings: Covid neg 03/03. [facility] PHYSICAL EXAM: PHYSICAL EXAM: Habitus: Morbid obesity Mental Status: Awake, Alert and Oriented Mallampati:: III TM distance:: >3 FB Neck ROM:: Full Rhythm:: Regular Rate:: Normal natural Breath sounds clear to auscultation Anesthesia Plan ASA Final: 3 General Intravenous induction Oral ETT airway maintenance NPO status > 8 hours Anesthetic plan and risks discussed with Patient. Plan discussed with Nurse Scallop Cutter Machine. [facility] FINAL DOS EXAM: ASA score (Day of Surgery): 3 Mallampati:: III Cardiovascular: hyperlipidemia Cardiovascular Neg Pulmonary Neg Plan: General I have reviewed the patient's labs, EKG, and consult information. documented in this encounter Plan of Treatment Not on file documented as of this encounter Visit Diagnoses Not on filedocumented in this encounter Administered Medications Inactive Administered Medications - up to 3 most recent administrations Medication Order MAR Action Action Date Dose Rate Site ceFAZolin (ANCEF) 2,000 mg in dextrose (iso-osmotic) 100 mL IVPB (PREMIX) 2,000 mg, IV, PRE-PROCEDURE ONCE, 1 dose, Starting on Sun03/08/21 at 0911, Until Sun03/08/21 at 1055, Routine, Pre-op, Antibiotic Indication: Surgical prophylaxis Given 03/08/2021 10:55 AM CDT 2,000 mg dexamethasone (DECADRON) injection IV, INTRA-PROCEDURE PRN, Starting on Sun03/08/21 at 1108, Until Sun03/08/21 at 1307, Routine, Anesthesia Intra-op Given 03/08/2021 11:08 AM CDT 8 mg fentaNYL PF (SUBLIMAZE) 50 mcg/mL injection IV, INTRA-PROCEDURE PRN, Starting on Sun03/08/21 at 1037, Until Sun03/08/21 at 1307, Routine, Anesthesia Intra-op Given 03/08/2021 11:00 AM CDT 50 mcg Given 03/08/2021 10:37 AM CDT 50 mcg glycopyrrolate (ROBINUL) injection IV, INTRA-PROCEDURE PRN, Starting on Sun03/08/21 at 1135, Until Sun03/08/21 at 1307, Routine, Anesthesia Intra-op Given 03/08/2021 11:35 AM CDT 0.2 mg HYDROmorphone (DILAUDID) 2 mg/mL injection IV, INTRA-PROCEDURE PRN, Starting on Sun03/08/21 at 1129, Until Sun03/08/21 at 1307, Routine, Anesthesia Intra-op Given 03/08/2021 11:34 AM CDT 0.2 mg Given 03/08/2021 11:29 AM CDT 0.2 mg lactated ringers infusion IV, at 100 mL/hr, CONTINUOUS, Starting on Sun03/08/21 at 0915, Until Sun03/08/21 at 1903, Routine, Pre-op New Bag 03/08/2021 12:17 PM CDT New Bag 03/08/2021 10:30 AM CDT lidocaine PF 2% (XYLOCAINE MPF) injection IV, INTRA-PROCEDURE PRN, Starting on Sun03/08/21 at 1037, Until Sun03/08/21 at 1307, Routine, Anesthesia Intra-op Given 03/08/2021 10:37 AM CDT 5 mL ondansetron (ZOFRAN) 4 mg/2 mL injection IV, INTRA-PROCEDURE PRN, Starting on Sun03/08/21 at 1216, Until Sun03/08/21 at 1307, Routine, Anesthesia Intra-op Given 03/08/2021 12:16 PM CDT 4 mg phenylephrine (KENNY-SYNEPHRINE) 10 mg in sodium chloride 0.9% 25 mL infusion IV, INTRA-PROCEDURE CONTINUOUS PRN, Starting on Sun03/08/21 at 1116, Until Sun03/08/21 at 1307, Anesthesia Intra-op Rate Change 03/08/2021 12:22 PM CDT 0.2 mcg/kg/min 3.477 mL/hr Rate Change 03/08/2021 11:40 AM CDT 0.3 mcg/kg/min 5.216 m L/hr Rate Change 03/08/2021 11:37 AM CDT 0.2 mcg/kg/min 3.477 m L/hr phenylephrine 1 mg/10 mL (100 mcg/mL) injection IV, INTRA-PROCEDURE PRN, Starting on Sun03/08/21 at 1107, Until Sun03/08/21 at 1307, Routine, Anesthesia Intra-op Given 03/08/2021 12:34 PM CDT 100 mcg Given 03/08/2021 12:27 PM CDT 100 mcg Given 03/08/2021 11:16 AM CDT 100 mcg propofoL (DIPRIVAN) injection IV, INTRA-PROCEDURE PRN, Starting on Sun03/08/21 at 1037, Until Sun03/08/21 at 1307, Anesthesia Intra-op Given 03/08/2021 12:30 PM CDT 40 mg Given 03/08/2021 12:28 PM CDT 20 mg Given 03/08/2021 12:23 PM CDT 20 mg succinylcholine Chloride (ANECTINE) 140 mg/7 mL (20 mg/mL) injection IV, INTRA-PROCEDURE PRN, Starting on Sun03/08/21 at 1037, Until Sun03/08/21 at 1307, Routine, Anesthesia Intra-op Given 03/08/2021 10:42 AM CDT 60 mg Given 03/08/2021 10:37 AM CDT 120 mg documented in this encounter Care Teams Cavalry Officer Relationship Specialty Start Date End Date Justin Olvera MD [address] [place] [address] PCP - General Internal Medicine 02/18/21 documented as of this encounter
--- OUTSIDE RECORDS SUMMARY | 2024-04-23 03:56 | XMS_ITS | Encounter Summary ---
Author Organization [facility] Address [address] [place] [address] Care Team Providers Care Pin Ball Machine Mechanic Name Role Phone Justin Olvera MD Primary Care Provider [phone] Reason for Visit * Reason Comments Follow Up Encounter Details Date Type Department Care Team (Latest Contact Info) Description 09/22/2021 2:00 PM CDT Office Visit [facility] [address] [place] [address] [place] [address] [facility] [address] [place] [address] Hyperparathyroidism (Primary Dx) Social History Tobacco Use [...] Exposure Response Date Recorded In the last 10 days, have yo u been in contact with someone who was confirmed or suspected to have Coronavirus/COVID-19? No / Unsure 09/22/2021 1:45 PM CDT documented as of this encounter Last Filed Vital Signs Vital Sign Reading Time Taken Comments Blood Pressure 122/88 09/22/2021 2:02 PM CDT Pulse 78 09/22/2021 2:02 PM CDT Temperature 37.1 ??C (98.7 ??F) 09/22/2021 2:02 PM CD T Respiratory Rate - - Oxygen Saturation 96% 09/22/2021 2:02 PM CDT Inhaled Oxygen Concentration - - Weight 119.3 kg (263 lb 1.6 oz) 09/22/2021 2:02 PM CDT Height 152.4 cm (5') 09/22/2021 2:02 PM CDT Body Mass Index 51.38 09/22/2021 2:02 PM CDT documented in this encounter Progress Notes * Keanu Quinn MD - 09/23/2021 11:10 AM CDT Images from the original note were not included. HISTORY OF PRESENT ILLNESS Interval history 09/22/21 Kate returns today as a routine follow-up from recent parathyroidectomy. Patient states she has had no problems since surgery, and has had a strong voice with no symptoms of hypocalcemia demonstrated. She has noticed improvements since the surgery and is feeling quite well. Postoperative outpatient calcium prior to this visit 8.9 and PTH of 62.8. No further concerns at this time. Kate Agudelo is a 66 y.o. lady with no significant PMH who presents for surgical evaluation and management of primary hyperparathyroidism Subjective Referred by Dr. Olvera from [facility]. Denies sxs of hypercalcemia including fatigue, abdominal pain, N/V/D, psychiatric sxs, Kidney stones, osteoporosis, muscle/joint pains. See below for all other ROS Patient does endorse history of left thyroid nodule status post lobectomy over 10 years ago currently on Synthroid daily. Patient is on baby aspirin for cardiovascular protection due to mother having PA in her 60s. Medical history includes type 2 diabetes on 1000 mg Metformin twice daily and Rybelsus 7 mg daily, hypertension on metoprolol, losartan, CCB verapamil. Surgical history includes benign stomach nodule status post partial gastrectomy in 2005, cholecystectomy, hernia repair. Family history includes mother from [place], father with pancreatic cancer, brother with leukemia. REVIEW OF SYSTEMS Review of Systems Constitutional: Negative. HENT: Negative. Eyes: Negative. Respiratory: Negative. Cardiovascular: Negative. Gastrointestinal: Negative. Endocrine: Negative. Genitourinary: Negative. Musculoskeletal: Negative. Neurological: Negative. Hematological: Negative. Psychiatric/Behavioral: Negative. Past Medical History: Diagnosis Date ??? Arthritis knee pain ??? Cough from allergies ??? Diabetes mellitus ??? HTN (hypertension) ??? Hyperlipidemia ??? Hyperparathyroidism 02/11/2021 and has parathroid enlarged ??? Hypothyroidism ??? Obstructive sleep apnea C-pap ??? Thyroid nodule had removed ??? Vitamin D deficiency Past Surgical History: Procedure Laterality Date ??? HX SECTION 1975;1979 ??? HX CHOLECYSTECTOMY 1985 ??? HX HERNIA INCISIONAL REPAIR with mesh ??? HX PARTIAL GASTRECTOMY 2006 due to nodule in stomach ??? HX PARTIAL THYROIDECTOMY 2008 ??? IA EXPLORE PARATHYROID GLANDS Right 03/08/2021 RIGHT MINIMALLY INVASIVE PARATHYROIDECTOMY WITH INTRAOPERATIVE RECURRENT LARYNGEAL NERVE MONITORINGWITH INTRAOPERATIVE PARATHYROID HORMONE MONITORING performed by Keanu Quinn MD at [facility] OR ??? TONSILLECTOMY Social History Tobacco Use ??? Smoking status: Never Smoker ??? Smokeless tobacco: Never Used Vaping Use ??? Vaping Use: Never used Substance Use Topics ??? Alcohol use: Never ??? Drug use: Never No family history on file. Current Outpatient Medications Medication Instructions ??? acetaminophen (TYLENOL ARTHRITIS) 650 mg, Oral, EVERY 6 HOURS PRN ??? aspirin (ECOTRIN EC) 81 mg, Oral, DAILY ??? cholecalciferol (Vitamin D3) 5,000 Units, Oral, DAILY ??? levothyroxine (SYNTHROID) 88 mcg, Oral, DAILY ??? loratadine (CLARITIN) 10 mg, Oral, DAILY PRN ??? losartan (COZAAR) 100 mg, Oral, DAILY, Losartan potassium ??? metFORMIN (GLUCOPHAGE) 1,000 mg, Oral, DAILY ??? metoprolol succinate (TOPROL XL) 25 mg, Oral, DAILY ??? rosuvastatin (CRESTOR) 5 mg, Oral, DAILY AT BEDTIME ??? Rybelsus 7 mg, Oral, DAILY ??? verapamiL (VERELAN) 360 mg, Oral, DAILY No Known Allergies Objective PHYSICAL EXAM Vitals: 09/22/21 1402 BP: 122/88 Pulse: 78 Temp: 98.7 ??F (37.1 ??C) SpO2: 96% Physical Exam Vitals reviewed. Constitutional: General: She is not in acute distress. Appearance: Normal appearance. HENT: Head: Normocephalic and atraumatic. Right Ear: External ear normal. Left Ear: External ear normal. Mouth/Throat: Comments: Well-healed surgical scar at the base of the neck Eyes: Extraocular Movements: Extraocular movements intact. Conjunctiva/sclera: Conjunctivae normal. Cardiovascular: Rate and Rhythm: Normal rate and regular rhythm. Pulses: Normal pulses. Heart sounds: Normal heart sounds. No murmur heard. Pulmonary: Effort: Pulmonary effort is normal. No respiratory distress. Breath sounds: Normal breath sounds. Abdominal: General: Abdomen is flat. Palpations: Abdomen is soft. Musculoskeletal: General: No swelling or tenderness. Cervical back: Normal range of motion and neck supple. Right lower leg: No edema. Left lower leg: No edema. Skin: General: Skin is warm. Neurological: Mental Status: She is alert. Mental status is at baseline. ASSESSMENT and PLAN: ICD-10-CM ICD-9-CM 1. Hyperparathyroidism E21.3 252.00 65-year-old female status post successful parathyroidectomy, normocalcemia demonstrated at this visit. With most recent PTH and calcium levels within the normal range the pt will no longer need to follow up with our office at this time. All case findings were discussed with Dr. Quinn. Catalina Vaz DO PGY-1 09/22/21 Attestation: I personally performed a history and physical examination of the patient and discussed the management of the patient with my resident Dr. Vaz and reviewed their medical records myself including recent pathology and agree with the history, physical exam, and plan of care including follow-up. I reviewed the resident's note and agree with the documented findings and plan of care. I spent a totalof 20 minutes with the patient of which 15 minutes were spent in corporate travel counselor about the details of the condition, specifically the surgical management of Hyperparathyroidism. Thank you for involving me inthe care of this patient. Please don't hesitate to contact me if you have any questions or concerns. in kind regards, Keanu Quinn MD, FACS, [facility] Surgical Oncology and Endocrine Surgery [facility] documented in this encounter Plan of Treatment Not on file documented as of this encounter Visit Diagnoses Diagnosis Hyperparathyroidism- Primary Hyperparathyroidism, unspecified documented in this encounter Care Teams Pin Ball Machine Mechanic Relationship Specialty [place] [address] [place] [phone] PCP - General Internal Medicine 02/18/21 documented as of this encounter
--- OUTSIDE RECORDS SUMMARY | 2024-04-23 03:56 | XMS_ITS | Encounter Summary ---
Author Organization [facility] Address [address] Krishnan: Epic Prelude ADT [place] [address] Care Team Providers Care Entry Level Truck Driver Name Role Phone Justin Olvera MD Primary Care Provider [phone] Encounter Details Date Type Department Care Team (Latest Contact Info) Description 09/22/2021 Travel Social History Tobacco Use Types Packs/Day Years [...] PM CDT documented as of this encounter Plan of Treatment Not on file documented as of this encounter Visit Diagnoses Not on filedocumented in this encounter Care Teams Entry Level Truck Driver Relationship Specialty Start Date End Date Justin Olvera MD [address] [place] [phone] PCP - General Internal Medicine 02/18/21 documented as of this encounter
--- OUTSIDE RECORDS SUMMARY | 2024-04-23 03:56 | XMS_ITS | Encounter Summary ---
Author Organization [facility] Address [address] [place] [address] Care Team Providers Care Remittance Clerk Name Role Phone Justin Olvera MD Primary Care Provider [phone] Encounter Details Date Type Department Care Team (Late st Contact Info) Description 08/02/2020 Orders Only [facility] - COVID Vax [address] [place] [address] Ajay Mariano MD [address] [address] Need for vaccination Social History Tobacco Use Types Packs/Day Years Used Date Smoking Tobacco: Never Assessed Sex and Gender Information Value Date Recorded Sex Assigned at Not on file Gender Identity Not on file Sexual Orientation Not on file documented as of this encounter Plan of Treatment Not on file documented as of this encounter Visit Diagnoses Diagnosis Need for vaccination Need for prophylactic vaccination and inoculation against unspecified single disease documented in this encounter Care Teams Remittance Clerk Relationship Specialty Start Date End Date Justin Olvera MD [address] [place] [phone] PCP - General Internal Medicine 02/20/19 documented as of this encounter
--- OUTSIDE RECORDS SUMMARY | 2024-04-23 03:56 | XMS_ITS | Referral Summary ---
Author Organization [facility] Address [address] [place] [address] Care Team Providers Care Distributor Sales Consultant Name Role Phone Justin Olvera MD Primary Care Provider [phone] Source Comments [facility] [employer],non-owned Affiliates and Associated Physician Practices is amultiple site organization consisting of ambulatory clinics and hospital sitesin [place], [place], [place] and [place]. This disclosure is being madepursuant to the Care Everywhere program and may not contain all information available regarding this patient. Last updated 18.[facility] [employer] Allergies No known active allergies Medications * Be aware that medications may not be up to date on this document. Alwaysverify current medications with the patient. Medication Sig Dispensed Refills Start Date End Date Status aspirin (ASPIRIN) 81 MG tablet Take 81 mg by mouth once daily Active metFORMIN (GLUCOPHAGE) 850 MG tablet Take 850 mg by mouth 2 times daily with morning and evening meal Active DICLOFENAC PO Active atorvastatin (LIPITOR) 20 MG tablet Take 20 mg by mouth at bedtime Active folic acid (FOLVITE) 1 MG tablet Take 1 mg by mouth once daily Active verapamil SR 24hr (VERELAN) 240 MG capsule Take 240 mg by mouth once daily Active ferrous sulfate 325 (65 FE) MG tablet Take 325 mg by mouth daily with food Active levothyroxine (SYNTHROID) 75 MCG tablet Take 75 mcg by mouth daily before breakfast Active cyanocobalamin (VITAMIN B-12) injection Inject into muscle every 30 days Active Exenatide ER (BYDUREON BCISE) 2 MG/0.85ML AUIJ Active losartan-hydroCHLOROt hiazide (HYZAAR) 100-12.5 MG tablet Take 1 tablet by mouth once daily Active oxybutynin (DITROPAN) 5 MG tablet Take 5 mg by mouth 3 times daily Active Immunizations Name Administration Dates Next Due INFLUENZA VACCINE, QUADR. (F LUZONE; FLULAVAL; FLUARIX; AFLURIA QUADRIVALENT; 6MO+), 0.5 ML (IIV4) 02/20/2019 Social History Tobacco Use Types Packs/Day Years Used Date Smoking Tobacco: Never Assessed Sex and Gender Information Value Date Recorded Sex Assigned at Not on file Gender Identity Not on file Sexual Orientation Not on file Plan of Treatment Not on file Care Teams Distributor Sales Consultant Relationship Specialty Start Date End Date Justin Olvera MD [address] [place] [address] PCP - General Internal Medicine 02/20/19
--- OUTSIDE RECORDS SUMMARY | 2024-04-23 03:56 | XMS_ITS | Data Portability ---
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 She is here to have a cortisone shot in the right knee today. She has diabetes who we are the shots per by a week. She had a cortisone shot left knee 1 week ago and tolerated that well and did not notice much increase in her blood sugars. She states her last hemoglobin A1c was 6.1. She would like cortisone shot in the right knee today. Risk of side effects including risk of infection discussed. After ChloraPrep prep, 20 mg of Kenalog and 4 cc of 0.5% ropivacaine were injected into the right knee without difficulty. I will see her back in 3 months to assess her progress . [email or web address] Not available 11/30/2022 10:46:30 02/22/2023 02/22/2023 HPI: Patient returns. She is here for cortisone injection left knee. She has severe medial compartment osteoarthritis. She had shot 3 months ago which helped quite a bit. She has lost between 10 and 15 lb since we saw her last by controlling her caloric intake and she feels it is helping pain in her knee. She wished to have another injection today. Physical exam: 67-year-old female alert pleasant. She walks without assistance. She has a mild effusion left knee. Range of motion is from 5-125 degrees. Mild tenderness over the medial joint line to palpation. No increased swelling in either lower extremity. After ChloraPrep was used on skin 20 mg Kenalog and 3 cc of 0.5% ropivacaine was injected into the left knee. Risk of infection discussed. I reminded her blood sugars quite for several days due to the injection. Impression: 67-year-old female who has severe medial compartment osteoarthritis. She will be back in 1 week for cortisone injection in the right Knee. Not available 02/22/2023 10:49:28 03/01/2023 03/01/2023 HPI: Patient returns. She is here for cortisone injections right knee. She had a shot left knee week ago which left knee is doing well. Has diabetes or her injections by week. She has severe medial compartment osteoarthritis in both knees. Physical exam: 67-year-old female alert. She walks well. She has a mild effusion right knee. Range of motion is from 0-125 degrees. Mild tenderness over the medial joint line palpation. No swelling in either lower extremity. After ChloraPrep was used on skin 20 mg Kenalog and 3 cc of 0.5% ropivacaine was injected into the right knee. Risk of infection discussed. Impression: 67-year-old female who has severe medial compartment osteoarthritis in both knees. Injections continue to work well for her. She is going to continue with working on her weight loss as well. We will see her in 3 months. Not available 03/01/2023 10:19:19 05/24/2023 05/24/2023 HPI: Patient returns. She is here for cortisone injection in the left knee. It has been 3 months since the last shot. She has advanced medial compartment osteoarthritis. She is not a surgical candidate due to her weight. She typically gets shots in both knees by a week due to her diabetes. Shots to continue give her good benefit. Physical exam: 68-year-old female alert pleasant. Is walking without assistance. She has a mild yqlf-ao-toqc limp. She has a mild palpable effusion in the left knee. Range of motion is from 3-125 degrees. Zlbk-vs-jjhfuzlc tenderness over the medial joint line to palpation. After ChloraPrep was used on skin 20 mg Kenalog and 3 cc of 0.5% ropivacaine was injected into the left knee. Impression: 68-year-old female has severe medial compartment osteoarthritis in both knees. Injections continue give good relief. See her in a week for injection in the right knee Not available 05/24/2023 10:25:18 05/31/2023 05/31/2023 HPI: Patient returns. She is here for a cortisone injection in the right knee. Last shot was 3 months ago. Shots continue to give her good relief of her symptoms. She has severe medial compartment osteoarthritis. She is not a surgical candidate due to weight. Physical exam: 68-year-old female alert. She walks well without limp. She has a mild effusion. Range of motion is from 3-125 degrees. Mild tenderness over the medial joint line to palpation. After ChloraPrep was used on the skin 20 mg Kenalog and 3 cc of 0.5% ropivacaine was injected into the right knee. impression: 68-year-old female who has severe medial compartment osteoarthritis in the right knee. Shots continue to give her good relief. We will see her in 3 months. Not available 05/31/2023 10:44:04 Plan of Treatment Reminders Order Date Submit Date Provider Last Modified By Organization Details Last Modified Time Details Appointments None recorded. Lab None recorded. Referral None recorded. Procedures injection/a spiration joint/bursa (PROC) - in office procedure, administere d by provider 2022 023 [email or web address] In-Office Order, Internal Use Only DO Not Attach Compendium DO Not Attach Compendium, Do Not Delete/merge, [id number] 10:06:54 injection/a spiration joint/bursa (PROC) - in office procedure, administere d by provider 2022 023 [email or web address] In-Office Order, Internal Use Only DO Not Attach Compendium DO Not Attach Compendium, Do Not Delete/merge, [id number] 10:07:18 injection/a spiration joint/bursa (PROC) - in office procedure, administere d by provider 2022 023 [email or web address] In-Office Order, Internal Use Only DO Not Attach Compendium DO Not Attach Compendium, Do Not Delete/merge, [id number] 10:00:46 injection/a spiration joint/bursa (PROC) - in office procedure, administere d by provider 2023 024 In-Office Order, Internal Use Only DO Not Attach Compendium DO Not Attach Compendium, Do Not Delete/merge, [id number] 10:18:10 injection/a spiration joint/bursa (PROC) - in office procedure, administere d by provider 2023 024 [email or web address] In-Office Order, Internal Use Only DO Not Attach Compendium DO Not Attach Compendium, Do Not Delete/merge, [id number] 10:31:35 Surgeries None recorded. Imaging None recorded. Medication Orders Kenalog 10 mg/mL suspension for injection 2022 023 [id number], [address] [place], [address], 4 10:16:44 ropivacaine (PF) 5 mg/mL (0.5 %) injection solution 2022 023 [email or web address] [id number], [address] [place], [address], 3 09:59:22 Kenalog 10 mg/mL suspension for injection 2022 023 [email or web address] [id number], [address] [place], [address], 4 10:16:44 ropivacaine (PF) 5 mg/mL (0.5 %) injection solution 2022 023 [email or web address] [id number], [address] [place], [address], 3 09:59:22 Kenalog 10 mg/mL suspension for injection 2022 023 [email or web address] [id number], [address] [place], [address], 4 10:16:44 ropivacaine (PF) 5 mg/mL (0.5 %) injection solution [address] #[id number], [address], [place], [address], 3 18:51:18 Kenalog 10 mg/mL suspension for injection [address]/[facility] #[id number], [address], [place], [address], 4 07:35:20 ropivacaine (PF) 5 mg/mL (0.5 %) injection solution 2023 024 [id number] [address] [place], [address], 4 07:35:20 Kenalog 10 mg/mL suspension for injection 2023 024 [id number], [address] [place], [address], 4 16:34:01 ropivacaine (PF) 5 mg/mL (0.5 %) injection solution [address]/[facility]acy #[id number], [address] [place], [address], 4 16:34:01 Patient TargetsNo targets recorded. Patient InstructionsNo instructions recorded. Reason for Referral None Reported. Problems Name Problem SNOMED Code Status Onset Date Resolution Date Notes Provider Name and Address Organization Details Recorded Time Osteoarthr itis of right knee joint 9140372789492 00 Active 2021 Not Available [facility] 3 07:32:18 Arthritis 9286182 Active 2021 Not Available [facility] 3 07:32:18 Osteoarthr itis 203859390 Active 2021 Not Available [facility] 3 07:32:18 Osteoarthr itis of left knee joint 8296361443219 09 Active 2022 Libia Soria, RMAbimael null, [place] [employer] [facility] 3 10:24:13 Problem Notes None recorded. Procedures Surgical History Date Name Laterality Status Provider Name and Address Organization Details Recorded Time delivery completed Not Available [facility] 07/05/2022 07:26:50 hernia repair completed Not Available [facility] 07/05/2022 07:26:50 Imaging Results None recorded. Procedure Notes None recorded. Medical Equipment None Reported. Medications Name Sig Start Date Stop Date Status Note LastModified by Organization Details LastModified Time atorvastati n 20 mg tablet 02/15 completed Not Available Not Available Not Available naproxen 375 mg tablet TAKE 1 TABLET BY MOUTH TWICE A DAY 04/07 completed Not Available Not Available Not Available verapamil ER 360 mg 24 hr capsule,ext ended release Take 1 capsule every day by oral route. active Not Available Not Available No t Available bupivacaine HCl 0.5 % (5 mg/mL) injection solution In office injection administe red by the provider 07/21 completed Not Available Not Available Not Available metformin 850 mg tablet 02/15 completed Not Available Not Available Not Available aspirin 81 mg tablet,rose marie yed release Take 1 tablet every day by oral route. 02/15 completed Not Available Not Available Not Available levothyroxi ne 75 mcg tablet 12/14 completed Not Available Not Available Not Available levothyroxi ne 100 mcg tablet active Not Available Not Available Not Available levothyroxi ne 88 mcg tablet 10/06 completed Not Available Not Available Not Available OneTouch Ultra Test strips active Not Available Not Available Not Available Kenalog 10 mg/mL suspension for injection in office 2023 active [facility]: 0003- 0494- 20 Not Available Not Available Not Available cyanocobala min (vit B-12) 1,000 mcg/mL injection solution 02/15 completed Not Available Not Available Not Available metformin 1,000 mg tablet active Not Available Not Available Not Available BD Luer-Madhavi Syringe 3 mL 25 gauge x 1 USE ONE PER MONTH FOR B-12 INJECTION 12/14 completed Not Available Not Available Not Available Synthroid 50 mcg tablet 11/29 completed Not Available Not Available Not Available oxybutynin chloride ER 5 mg tablet,exte nded release 24 hr TAKE 1 TABLET BY MOUTH EVERY DAY active Not Available Not Available No t Available Xylocaine 20 mg/mL (2 %) injection solution In office injection administe red by the provider 10/06 completed Not Available Not Available Not Available diclofenac sodium 75 mg tablet,rose marie yed release TAKE 1 TABLET BY MOUTH TWICE A DAY WITH FOOD active Not Available Not Available No t Available verapamil ER (SR) 240 mg tablet,exte nded release 02/15 completed Not Available Not Available Not Available folic acid 1 mg tablet 02/15 completed Not Available Not Available Not Available metoprolol succinate ER 25 mg tablet,exte nded release 24 hr TAKE 1 TABLET BY MOUTH EVERY DAY active Not Available Not Available No t Available cefuroxime axetil 500 mg tablet active Not Available Not Available No t Available levofloxaci n 500 mg tablet active Not Available Not Available Not Available Vitamin D2 1,250 mcg (50,000 unit) capsule Take by oral route. 2020 active Not Available Not Available Not Avai lable losartan 100 mg tablet TAKE 1 TABLET BY MOUTH DAILY active Not Available Not Available No t Available fluticasone propionate 50 mcg/actuati on nasal spray,suspe nsion active Not Available Not Available Not Available verapamil ER 240 mg 24 hr capsule,ext ended release 02/15 completed Not Available Not Available Not Available amoxicillin 875 mg-potassiu m clavulanate 125 mg tablet TAKE 1 TABLET BY MOUTH EVERY 12 HOURS UNTIL GONE 03/01 completed Not Available Not Available Not Available oxycodone 5 mg tablet 07/07 completed Not Available Not Available Not Available rosuvastati n 5 mg tablet Take 1 tablet every day by oral route. active Not Available Not Available No t Available Crestor 40 mg tablet active Not Available Not Available No t Available zolpidem ER 12.5 mg tablet,exte nded release,mul tiphase 02/15 completed Not Available Not Available Not Available losartan 100 mg-hydrochl orothiazide 12.5 mg tablet Take 1 tablet every day by oral route. 10/20 completed Not Available Not Available Not Available lidocaine (PF) 10 mg/mL (1 %) injection solution In office injection administe red by the provider 07/21 completed [facility]: 0409- 4276- 17 Not Available Not Available Not Available lidocaine (PF) 5 mg/mL (0.5 %) injection solution in office procedure , administe red by provider 05/04 completed Not Available Not Available Not Available metformin ER 1,000 mg 24 hr tablet,exte nded release (gastric reten.) Take 1 tablet every day by oral route. 07/07 completed Not Available Not Available Not Available ropivacaine (PF) 5 mg/mL (0.5 %) injection solution in office 2023 active [facility] [phone] -[phone]- 01 Not Available Not Available Not Available Victoza 2-Vinnie 0.6 mg/0.1 mL (18 mg/3 mL) subcutaneou s pen injector 02/15 completed Not Available Not Available Not Available Bydureon 2 mg/0.65 mL subcutaneou s pen injector Inject 0.65 mL by subcutane ous route. 02/15 completed Not Available Not Available Not Available NovoFine Plus 32 gauge x 1/6 needle 12/14 completed Not Available Not Available Not Available Ozempic 1 mg/dose (2 mg/1.5 mL) subcutaneou s pen injector 02/15 completed Not Available Not Available Not Available Ozempic 0.25 mg or 0.5 mg (2 mg/1.5 mL) subcutaneou s pen injector 02/15 completed Not Available Not Available Not Available OneTouch Ultra Blue Test Strip 12/14 completed Not Available Not Available Not Available Rybelsus 7 mg tablet active Not Available Not Available No t Available Rybelsus 3 mg tablet Take 1 tablet every day by oral route. 07/07 completed Not Available Not Available Not Available Fluzone High-Dose Quad (PF) 240 mcg/0.7 mL IM syringe ADMINISTE R 0.7ML IN THE MUSCLE DIRECTED active Not Available Not Available No t Available Vitals Date Recorded Body height Provider Name an d Address Organization Details Last Updated DateTime 11/30/2022 149.86 cm FRANC Kelly [place] [facility] 11/30/2022 10:05:49 Date Recorded Body height Body mass index (BMI) Body weight Provider Name and Address Organization Details Last Updated DateTime 02/22/2023 149.86 cm 53.1 kg/m2 568331.79 g Libia Soria Abimael [facility] [employer] [facility] 02/22/2023 10:11:38 Date Recorded Body height Provider Name an d Address Organization Details Last Updated DateTime 03/01/2023 149.86 cm Claudia Harriss [facility] 03/01/2023 09:58:55 Date Recorded Body height Provider Name an d Address Organization Details Last Updated DateTime 05/24/[address] [facility] 05/24/2023 10:16:39 Date Recorded Body height Provider Name an d Address Organization Details Last Updated DateTime 05/31/2023 149.86 cm [facility]/31/2023 10:20:04 Social History Question Answer Notes LastModified by Organizat ion Details LastModified Time Tobacco Smoking Status Never Smoker Not Available [facility] 07/05/2022 07:26:48 What Is Your Level Of Alcohol Consumption? None [id number] Information not available 07/05/2022 Sex: Unknown Functional Status None recorded. Mental Status None recorded. Family History Relationship Description Onset Age of this Age Resolved Age Notes LastModified by Organization Details LastModified Time Unspecified Relation Hypertensive disorder [id number] Not available 07/05/2022 07:26:53 Brother Diabetes mellitus [id number] Not available 07/05/2022 07:26:53 Mother Heart disease [id number] Not available 07/05/2022 07:26:53 Father Family history of malignant neoplasm [id number] Not available 07/05/2022 07:26:53 Notes:FAMILY HX DIABETES, HE ART DISEASE, HYPERTENSION, PANCREATIC CANCER, LEUKEMIA Medical History Condition Response BLINDNESS N KIDNEY STONES N MRSA N CARPAL TUNNEL SYNDROME N LUNG DISEASE/DISORDER N HISTORY OF DRUG ABUSE N RADIATION / CHEMOTHERAPY N COPD N SPORTS INJURY N ANKLE PAIN N BLOOD DISEASES N SCHIZOPHRENIA N SHINGLES N SHOULDER PAIN N DEPRESSION (INCLUDING POST ) N BOWEL PROBLEMS N STROKE/TIA N ULCERS N KNEE PAIN N BENIGN PROSTATIC HYPERPLASIA N OBESITY N GERD/NAUSEA N ANEURYSM N URINARY/BLADDER/KIDNEY PROBLEMS N CORONARY ARTERY DISEASE (CAD) N ADDICTION CONCERNS N USE OF BLOOD THINNERS N SKIN PROBLEMS N EMPHYSEMA N MUSCLE,JOINT OR BONE PROBLEMS N DVT N STOMACH ULCERS N BLOOD CLOTS N USE OF NSAIDS Y CONCUSSION OR SPINAL TRAUMA N NEUROPATHY N AIDS/HIV N FRACTURES N HYPERTENSION Y ELBOW PAIN N TOURETTE'S N Metal allergy N ANXIETY DISORDER N BLOOD TRANSFUSION N ANEMIA/BLOOD DISORDER Y BIPOLAR DISORDER N BRONCHITIS N OSTEOARTHRITIS N TUBERCULOSIS N FOOT PROBLEM N HEART VALVE DISORDERS N ALLERGIES/HAYFEVER N SOFT TISSUE INJURY N INFECTIOUS DISEASE N HEART ARRHYTHMIA N INSOMNIA N HIGH CHOLESTEROL / HYPERLIPIDEMIA N RHEUMATOID ARTHRITIS N EDEMA N CHRONIC PAIN SYNDROME N CAROTID BLOCKAGE N BACK / NECK PROBLEMS N HAVE YOU BEEN HOSPITALIZED OR SEEN IN [facility] ER IN THE PAST YEAR ? N BURSITIS N HERNIATED DISC N DIALYSIS N FIBROMYALGIA N OSTEOPOROSIS N ARTHRITIS Y NO SIGNIFICANT PAST MEDICAL HISTORY N PERIPHERAL NEUROPATHY N DIABETES, TYPE Y HEARTBURN / REFLUX N HEPATITIS / LIVER DISEASE N GOUT N ALZHEIMER'S DISEASE N SLEEP DISORDER N HERPES N HEADACHES/MIGRAINES N SEIZURES/EPILEPSY N VASCULAR DISEASE N Blood Disorder N HIP PAIN N DIZZINESS N HEAD TRAUMA OR INJURY N HEART DISEASE/HEART PROBLEMS N MULTIPLE SCLEROSIS N CANCER: SPECIFY N CARDIAC ARRHYTHMIA N ANESTHESIA COMPLICATIONS N ATRIAL FIBRILLATION N AUTOIMMUNE DISEASE N Gynecological HistoryNo gynecological history recorded. Obstetrics History GPAL:G 0 P 0 0 0 0 Past Encounters Encounter ID Performer Location Encounter Start Date Encounter Closed Date Diagnosis/Indication Diagnosis SNOMED-CT Code Diagnosis ICD10 Code [id number] [facility] [address] [address] 12/16/2020 00:00:00 12/16/2020 13:38:07 [id number] [facility] [address] [address] 04/07/2021 00:00:00 04/07/2021 13:26:38 [id number] [facility] [address] [address] 9 07/07/2021 00:00:00 07/07/2021 12:07:56 [id number] [facility] [address] [address] 9 07/21/2021 00:00:00 07/21/2021 13:23:06 [id number] [facility] [place] [address] [place] [address] 9 10/06/2021 00:00:00 10/06/2021 12:16:09 [id number] [facility] [address] [address] 10/20/2021 00:00:00 10/20/2021 10:26:06 [id number] [facility] [place] [address] [place] [address] 9 01/19/2022 00:00:00 01/19/2022 11:39:33 [id number] [facility] [address] [address] 9 02/02/2022 00:00:00 02/02/2022 10:44:28 [id number] [facility] [address] [address] 9 05/04/2022 00:00:00 05/04/2022 10:57:27 [id number] [facility] [address] [address] 9 05/11/2022 00:00:00 05/11/2022 11:34:40 [id number] [place] [facility] [place] [address] 08/10/2022 10:20:35 08/10/2022 11:08:04 Osteoarthritis of left knee joint 7949071352 05738 M17.12 [id number] [place] [facility] [place] [address] 08/24/2022 11:05:17 08/24/2022 11:51:07 Osteoarthritis of right knee joint 0949490159 04695 M17.11 [id number] [place] [facility] [place] [address] 9 11/23/2022 11:08:50 11/23/2022 11:55:00 Osteoarthritis of left knee joint 6019104087 93996 M17.12 [id number] Manuel Kelly MD [facility] [place] [address] 9 11/30/2022 09:58:45 11/30/2022 10:50:03 Osteoarthritis of right knee joint 5284652836 78587 M17.11 [id number] [place] [facility] [place] [address] 9 02/22/2023 09:51:25 02/22/2023 11:03:06 Osteoarthritis of left knee joint 1806242944 46578 M17.12 [id number] [place] [facility] [place] [address] 9 03/01/2023 09:51:48 03/01/2023 10:25:33 Osteoarthritis of right knee joint 8956329059 29020 M17.11 [id number] [place] [facility] [place] [address] 9 05/24/2023 10:03:53 05/24/2023 11:05:28 Osteoarthritis of left knee joint 8443643653 42564 M17.12 [id number] [place] [facility] [place] [address] 9 05/31/2023 10:00:15 05/31/2023 11:13:11 Osteoarthritis of left knee joint 8088818462 75909 M17.12 Health Concerns Section Related Observation LastModified by Organization Detai ls LastModified Time None Recorded Concern Status LastModified by Organization Details LastModified Time None Recorded Advance Directives Directive None Recorded Payers Encounter Date Sequence Insurance Name Policy Number Policy Ramirez Covered Member ID Ramirez Member ID Guarantor Name 11/30/2022 1 [facility] (MEDICARE REPLACEMENT/A DVANTAGE - HMO) [id number] Kate Agudelo [id number] Kate Agudelo 02/22/2023 1 [facility] (MEDICARE REPLACEMENT/A DVANTAGE - HMO) [id number] Kate Agudelo [id number] Kate Agudelo 03/01/2023 1 [facility] (MEDICARE REPLACEMENT/A DVANTAGE - HMO) [id number] Kate Vu Wielgus [id number] Kate Vu Wielgus 05/24/2023 1 [facility] (MEDICARE REPLACEMENT/A DVANTAGE - HMO) [id number] Kate Vu Wielgus [id number] Kate Vu Wielgus 05/31/2023 1 [facility] (MEDICARE REPLACEMENT/A DVANTAGE - HMO) [id number] Kate Vu Wielgus [id number] Kate Vu Wielgus OBGyn Episode No OBEpisode recorded.
--- OUTSIDE RECORDS SUMMARY | 2024-04-23 03:56 | XMS_ITS | Clinical Summary ---
Author Organization [facility] Address [address] [place] [address] Care Team Providers Care Asset Protection Associate Name Role Phone Justin Olvera MD Primary Care Provider [phone] Source Comments [facility],non-owned Affiliates and Associated Physician Practices is amultiple site organization consisting of ambulatory clinics and hospital sitesin [place] and [place]. This disclosure is being madepursuant to the Care Everywhere program and may not contain all information available regarding this patient. Last updated 18.[facility] Allergies No known active allergies Medications * [...] Orientation Not on file Plan of Treatment Health Maintenance Due Date Last Done Comments BONE DENSITY TESTING 1955 COLOGUARD (AGES 45-75) - COL ON CA SCREENING 1953 COLON MONITORING 1953 COLONOSCOPY - COLON CA SCREENING 1953 CT COLONOGRAPHY - COLON CA SCREENING 1953 Colorectal Cancer Screening 1953 FIT - COLON CA SCREENING 1953 FLEX SIG - COLON CA SCREENING 1953 MAMMOGRAM 1953 HEPATITIS C SCREENING 04/14/1971 DTAP/TDAP/TD VACCINES (1 - Tdap) 1972 ZOSTER VACCINE (1 of 2) 2003 PNEUMOCOCCAL VACCINE 65+ (1 of 1 - PCV) 2018 DEPRESSION SCREENING 05/07/2023 MEDICARE AWV ? CALENDAR YEAR 2023 COVID-19 VACCINE (1 - 2023-2 5 season) 2024 INFLUENZA VACCINE (#1) 2024 02/20/2019 Respiratory Syncytial Virus (RSV) Vaccine Pt: or over 60 yrs (1 - 1-dose 75+ series) 2028 HEPATITIS B VACCINE Aged Out No longe r eligible based on patient's age to complete this topic HIB VACCINE Aged Out No longer eligi ble based on patient's age to complete this topic HPV VACCINE Aged Out No longer eligi ble based on patient's age to complete this topic MENINGOCOCCAL VACCINE Aged Out No bella suzie eligible based on patient's age to complete this topic Care Teams Asset Protection Associate Relationship Specialty Start Date End Date Justin Olvera MD [address] [place] [address] PCP - General Internal Medicine 02/20/19
--- OUTSIDE RECORDS SUMMARY | 2024-04-23 03:56 | XMS_ITS | Encounter Summary ---
Author Organization [facility] Address [address] Krishnan: Epic Prelude ADT VENKATESH MAGANA [address] Care Team Providers Care Database Technician Name Role Phone Justin Olvera MD Primary Care Provider [phone] Encounter Details Date Type Department Care Team (Latest Contact Info) Description 03/08/2021 Travel Social History Tobacco Use Types Packs/Day [...] AM CDT documented as of this encounter Plan of Treatment Not on file documented as of this encounter Visit Diagnoses Not on filedocumented in this encounter Care Teams Database Technician Relationship Specialty Start Date End Date Justin Olvera MD [facility] [place] [id number] PCP - General Internal Medicine 02/18/21 documented as of this encounter
--- OUTSIDE RECORDS SUMMARY | 2024-04-23 03:56 | XMS_ITS | Encounter Summary ---
Author Organization [facility] Address [address] Krishnan: Epic Prelude ADT VENKATESH MAGANA [address] Care Team Providers Care Professional Driver Name Role Phone Justin Olvera MD Primary Care Provider [phone] Encounter Details Date Type Department Care Team (Latest Contact Info) Description 03/24/2021 Travel Social History Tobacco Use Types Packs/Day [...] have Coronavirus / COVID-19? No / Unsure 03/24/2021 11:22 AM APPLICATIONS ANALYST documented as of this encounter Plan of Treatment Not on file documented as of this encounter Visit Diagnoses Not on filedocumented in this encounter Care Teams Professional Driver Relationship Specialty Start Date End Date Justin Olvera MD [facility] [place] [id number] PCP - General Internal Medicine 02/18/21 documented as of this encounter
--- OUTSIDE RECORDS SUMMARY | 2024-04-23 03:56 | XMS_ITS | Encounter Summary ---
Author Organization [facility] Address [address] [place] [address] Care Team Providers Care Artist Woodblock Name Role Phone Justin Olvera MD Primary Care Provider [phone] Reason for Visit * Reason Comments Post-op Visit Encounter Details Date Type Department Care Team (Latest Contact Info) Description 03/24/2021 11:45 AM SENIOR BENEFITS MANAGER Office Visit [facility] [address] [place] [address] [place] [address] [facility] [address] [place] [address] Hyperparathyroidism (Primary Dx) Social History [...] COVID-19? No / Unsure 03/24/2021 11:22 AM SENIOR BENEFITS MANAGER documented as of this encounter Last Filed Vital Signs Vital Sign Reading Time Taken Comments Blood Pressure 142/80 03/24/2021 11:40 AM SENIOR BENEFITS MANAGER Pulse 86 03/24/2021 11:40 AM SENIOR BENEFITS MANAGER Temperature - - Respiratory Rate - - Oxygen Saturation 98% 03/24/2021 11:40 AM SENIOR BENEFITS MANAGER Inhaled Oxygen Concentration - - Weight 116.6 kg (257 lb) 03/24/2021 11:40 AM SENIOR BENEFITS MANAGER Height 152.4 cm (5') 03/24/2021 11:40 AM SENIOR BENEFITS MANAGER Body Mass Index 50.19 03/24/2021 11:40 AM SENIOR BENEFITS MANAGER documented in this encounter Progress Notes * Keanu Quinn MD - 03/26/2021 10:02 AM CST Images from the original note were not included. HISTORY OF PRESENT ILLNESS Interval history 03/24/21 Kate returns today as a routine follow-up from recent parathyroidectomy. Patient states she has had no problems since surgery, and has had a strong voice with no symptoms of hypocalcemia demonstrated. She has noticed improvements since the surgery and is feeling quite well. Postoperative outpatient calcium prior to this visit 8.7. Kate Agudelo is a 65 y.o. lady with no significant PMH who presents for surgical evaluation and management of primary hyperparathyroidism Subjective Referred by Dr. Olvera from [facility]. Denies sxs of hypercalcemia including fatigue, abdominal pain, N/V/D, psychiatric sxs, Kidney stones, osteoporosis, muscle/joint pains. See below for all other ROS Patient does endorse history of left thyroid nodule status post lobectomy over 10 years ago currently on Synthroid daily. Patient is on baby aspirin for cardiovascular protection due to mother having [place] in her 60s. Medical history includes type 2 diabetes on 1000 mg Metformin twice daily and Rybelsus 7 mg daily, hypertension on metoprolol, losartan, CCB verapamil. Surgical history includes benign stomach nodule status post partial gastrectomy in 2005, cholecystectomy, hernia repair. Family history includes mother from [place], father with pancreatic cancer, brother with leukemia. [...] stomach ??? HX PARTIAL THYROIDECTOMY 2008 ??? NE EXPLORE PARATHYROID GLANDS Right 03/08/2021 RIGHT MINIMALLY INVASIVE PARATHYROIDECTOMY WITH INTRAOPERATIVE RECURRENT LARYNGEAL NERVE MONITORINGWITH INTRAOPERATIVE PARATHYROID HORMONE MONITORING performed by Keanu Quinn MD at [facility] OR ??? TONSILLECTOMY Social History Tobacco [...] No Known Allergies Objective PHYSICAL EXAM Vitals: 03/24/21 1140 BP: (!) 142/80 Pulse: 86 SpO2: 98% Physical Exam Vitals reviewed. Constitutional: General: She [...] successful parathyroidectomy, normocalcemia demonstrated at this visit. Discontinue calcium supplementation and return to clinic in 6 months with repeat calcium, PTH, and vitamin D level. in kind regards, Keanu Quinn MD, FACS, FS Surgical Oncology and Endocrine Surgery [facility] OR BENEFITS MANAGER documented in this encounter Plan of Treatment Not on file documented as of this encounter Visit Diagnoses Diagnosis Hyperparathyroidism- Primary Hyperparathyroidism, unspecified documented in this encounter Care Teams Artist Woodblock Relationship Specialty Start Date End Date Justin Olvera MD [facility] [place] [address] PCP - General Internal Medicine 02/18/21 documented as of this encounter
--- OUTSIDE RECORDS SUMMARY | 2024-04-23 03:56 | XMS_ITS | Patient Health Summary ---
Author Organization [facility] Address [address] [place] [address] Care Team Providers Care Continuing Education Instructor Name Role Phone Justin Olvera MD Primary Care Provider [phone] [facility],non-owned Affiliates and Associated Physician Practices is amultiple site organization consisting of ambulatory clinics and hospital sitesin [place], [place] and [place]. This disclosure is being madepursuant to the Care Everywhere program and may not contain all information available regarding this patient. Last updated 18.[facility] Allergies No known active allergies Medications * Be aware that medications may not be up to date on this document. Alwaysverify current medications with the patient. * aspirin (ASPIRIN) 81 MG tablet Take 81 mg by mouth once daily * metFORMIN (GLUCOPHAGE) 850 MG tablet Take 850 mg by mouth 2 times daily with morning and evening meal * DICLOFENAC PO * atorvastatin (LIPITOR) 20 MG tablet Take 20 mg by mouth at bedtime * folic acid (FOLVITE) 1 MG tablet Take 1 mg by mouth once daily * verapamil SR 24hr (VERELAN) 240 MG capsule Take 240 mg by mouth once daily * ferrous sulfate 325 (65 FE) MG tablet Take 325 mg by mouth daily with food * levothyroxine (SYNTHROID) 75 MCG tablet Take 75 mcg by mouth daily before breakfast * cyanocobalamin (VITAMIN B-12) injection Inject into muscle every 30 days * Exenatide ER (BYDUREON BCI) 2 MG/0.85ML AUIJ * losartan-hydroCHLOROthiazide (HYZAAR) 100-12.5 MG tablet Take 1 tablet by mouth once daily * oxybutynin (DITROPAN) 5 MG tablet Take 5 mg by mouth 3 times daily Immunizations * INFLUENZA VACCINE, QUADR. (FLUZONE; FLULAVAL; FLUARIX; AFLURIA QUADRIVALENT; 6MO+), 0.5 ML (IIV4)(Given 02/20/2019) Social History Tobacco Use Types Packs/Day Years Used Date Smoking Tobacco: Never Assessed Sex and Gender Information Value Date Recorded Sex Assigned at Not on file Gender Identity Not on file Sexual Orientation Not on file Care Teams Continuing Education Instructor Relationship Specialty Start Date End Date Justin Olvera MD [address] [place] [address] PCP - General Internal Medicine 02/20/19
--- OUTSIDE RECORDS SUMMARY | 2024-04-23 03:57 | XMS_ITS | Encounter Summary ---
Author Organization [facility] Address [address] Krishnan: Epic Prelude ADT VENKATESH MAGANA [address] Care Team Providers Care Acoustic Intelligence Specialist Name Role Phone Justin Olvera MD Primary Care Provider [phone] Encounter Details Date Type Department Care Team (Latest Contact Info) Description 03/03/2021 Travel Social History Tobacco Use Types Packs/Day [...] have Coronavirus / COVID-19? No / Unsure 03/03/2021 12:49 PM CDT documented as of this encounter Plan of Treatment Not on file documented as of this encounter Visit Diagnoses Not on filedocumented in this encounter Care Teams Acoustic Intelligence Specialist Relationship Specialty Start Date End Date Justin Olvera MD [facility] [place] [phone] PCP - General Internal Medicine 02/18/21 documented as of this encounter
--- OUTSIDE RECORDS SUMMARY | 2024-04-23 03:57 | XMS_ITS | Encounter Summary ---
Author Organization [facility] Address [address] [place] [address] Care Team Providers Care Vice President & General Manager [employer] Name Role Phone Justin Olvera MD Primary Care Provider [phone] Encounter Details Date Type Department Care Team (Latest Contact Info) Description 03/03/2021 2:00 PM CDT - 03/03/2021 11:59 PM CDT Hospital Encounter [facility] Pre Procedure Viral Testing [facility] [address] [place] [address] [place] [address] [facility] [address] [place] [address] Discharge Disposition: Home or Self Care Social History Tobacco Use Types Packs/Day Years [...] PM CDT documented as of this encounter Medications at Time of Discharge [...] for 14 days. 84 Tablet 03/08/2021 03/22/2021 ergocalciferol (VITAMIN D2) 50,000 unit capsule Take by mouth daily. 03/08/2021 documented as of this encounter Plan of Treatment Not on file documented as of this encounter Visit Diagnoses Not on filedocumented in this encounter Care Teams Vice President & General Manager [employer] Relationship Specialty Start Date End Date Justin Olvera MD [address] [place] [phone] PCP - General Internal Medicine 02/18/21 documented as of this encounter
--- OUTSIDE RECORDS SUMMARY | 2024-04-23 03:57 | XMS_ITS | Encounter Summary ---
Author Organization [facility] Address [address] [place] [address] Care Team Providers Care Signal Worker Helper Name Role Phone Unavailable Primary Care Provider Unavailabl e Encounter Details Date Type Department Care Team (Late st Contact Info) Description 02/10/2021 Orders Only [facility] Surgical Specialists [facility] [address] [place] [address] [place] [address] [facility] [address] [place] [address] 2019 novel coronavirus disease (COVID-19) (Primary Dx); Hyperparathyroidism Social History Tobacco Use Types Packs/Day Years [...] have Coronavirus / COVID-19? No / Unsure 02/10/2021 11:15 AM CDT documented as of this encounter Plan of Treatment Not on file documented as of this encounter Visit Diagnoses Diagnosis 2019 novel coronavirus disease (COVID-19)- Primary Hyperparathyroidism Hyperparathyroidism, unspecified documented in this encounter
--- OUTSIDE RECORDS SUMMARY | 2024-04-23 03:57 | XMS_ITS | Encounter Summary ---
Author Organization [facility] Address [address] [place] [address] Care Team Providers Care Beverage Manager Name Role Phone Unavailable Primary Care Provider Unavailabl e Reason for Referral * CT Scan (Routine) - Closed Specialty Diagnoses / Procedures Referred By Francine andre Referred To Contact Diagnoses Hyperparathyroidism Procedures CT SOFT TISS[place] [address] [facility] [address] [place] [address] Referral ID Status Reason Start Date Expiration Date Visits Re quested Visits Authorized [id number] Closed 01/31/2021 03/03/2022 1 1 Reason for Visit * CT Scan (Routine) - Closed Specialty Diagnoses / Procedures Referred By Francine andre Referred To Contact Diagnoses Hyperparathyroidism Procedures CT SOFT TISSUE [place] [id number] [address] [facility] [address] [place] [address] Referral ID Status Reason Start Date Expiration Date Visits Re quested Visits Authorized [id number] Closed 01/31/2021 03/03/2022 1 1 Encounter Details Date Type Department Care Team (Latest Contact Info) Description 02/04/2021 9:54 AM CDT - 02/04/2021 11:59 PM CDT Hospital Encounter Alejandra CT Scan [place] [address], [facility] [address] [place] [id number] [place] [address] [address] [facility] [address] [place] [address] Discharge Disposition: Home or Self [...] have Coronavirus / COVID-19? No / Unsure 02/04/2021 9:55 AM CDT documented as of this encounter Medications at Time of Discharge Medication Sig Dispensed Refills Start Date End Date verapamiL (VERELAN) 360 mg Sustained Release 24 hour capsule Take 360 mg by mouth daily. 01/24/2021 Rybelsus 7 mg Tablet Take 7 mg by mouth daily. 01/31/2021 aspirin (ECOTRIN EC) 81 mg Tablet, Delayed Release (E.C.) Take 81 mg by mouth daily. 02/16/2020 levothyroxine 88 mcg tablet Take 88 mcg by mouth daily. 01/24/2021 losartan (COZAAR) 100 mg tablet Take 100 mg by mouth daily. Losartan potassium 01/08/2021 documented as of this encounter Miscellaneous Notes * Treatment Plan - Dorita Naranjo, RT - 02/04/2021 10:30 AM CDT Images from the original note were not included. ? STL IMS CT MRI Medication and Flush Protocol [facility] Approved by: [facility] - Medical Executive Committee Approval Date: 06/24/2020 ORDERS ARE ENTERED ???PER PROTOCOL?? Enter the protocol in the patient's electronic health record using [employer]: .imagingctmriprotocol Communication Orders: o For ordered imaging procedures requiring intravenous access: ??? Initiate a peripheral IV, if not already in place, and discontinue IV prior to discharge (if outpatient). ??? Enter order if needed: Insert Peripheral IV o Bariatric Oral Contrast: Post-surgical bariatric patients will have markedly reduced ability to drink normal quantities of liquid. ??? Four ounces will be the maximum amount or less if the patient cannot comfortably tolerate. ??? Cancel oral contrast if patient is nauseated or vomiting. ??? Water based contrast only Medication Orders: o Local Anesthetic for use to initiate IV ADULT ??? Lidocaine 4% (L.M.X.4) applied topically ONE TIME prior to IV catheter insertion PRN (L.M.X.4 %should be applied 15 minutes prior to procedure) PEDIATRIC ??? Lidocaine 4% (L.M.X.4) applied topically ONE TIME prior to IV catheter insertion PRN (apply 30 minutes prior to procedure) ??? Sucrose 24% (Squirts) given PO prior to IV catheter insertion (administer 1 - 2 minutes prior to procedure) OR ??? Sucrose 24% (Tootsweet; Sweet-Ease) oral solution 0.2 mL oral (apply to tongue on pacifier or clean, gloved finger), ONE TIME 2 minutes prior to painful procedure. May repeat dose x1 PRN to complete procedure. o Sodium chloride 0.9% (normal saline) flush 10 mL PRN for saline lock or medication administration. o For respiratory distress, initiate oxygen and/or increase O2 to maintain saturation greater than 90% o For all invasive procedures: obtain Lidocaine 1% for intra-procedure administration. If Lidocaine1% unavailable, may substitute Lidocaine 2%. PROCEDURE SPECIFIC CT MEDICATIONS Any exceptions to these contrast protocols must be approved by a Radiologist and documented in the EHR Progress Notes. Cystogram (CT Pelvis): Iopamidol (Isovue 300) 61%, 50mL, diluted with 250mL of sterile NS. Inject Isovue into 250mL bag ofNS. Clamp davidson catheter prior to instilling solution via catheter. o Instill up to 300mL of Isovue and NS solution into bladder via catheter, one time. CT ORAL CONTRAST PROTOCOLS FOR ADULTS ??? Use Iohexol (Omnipaque) 240 mg/mL for CT scan unless patient has a documented allergy to contrast dye. ??? If allergy present, use Barium Sulfate (EZ Paque) for procedure. o Iohexol (Omnipaque) 240 mg/mL: 50ml added to 960mL of clear liquid of patient's choice. Preferredroute is oral. May use nasoenteric tube if needed. ??? Administer 900mL of the diluted Omnipaque 240, orally, one time only. o Barium Sulfate (EZ Paque /Vanilla Silq) 96% oral suspension: Preferred route is oral. May use nasoenteric tube if needed. ??? Administer 900mL of barium sulfate, orally, one time only. CT ORAL CONTRAST PROTOCOLS FOR PEDIATRICS Pediatrics = up to age 18 o Pediatric Radiologist will approve of one of the following products selected for procedure. ??? Barium Sulfate (EZ Paque) 96% oral suspension: preferred route is oral. May use nasoenteric tube if needed. to 3 months Administer up to 90mL of Barium sulfate, orally, one time only 4 months to 1 year old Administer up to 240mL of Barium sulfate, Orally, One Time Only 1 year old to 5 years old Administer up to 360mL of Barium sulfate, Orally, One Time Only 5 years old to 10 years old Administer up to 480mL of Barium sulfate, Orally, One Time Only Over 10 years old Administer up to 600mL of Barium sulfate, Orally, One Time Only Iohexol (Omnipaque) 240 mg/mL oral solution ; Dilute 25mL of Iohexol with 480mL of clear liquid of patient's choice. Administer the diluted solution per age as follows: Preferred route is orally. May use nasoenteric tube if needed. ; Send any remaining diluted Iohexol solution with the patient's nurse to CT ; ; [place] ; Administer 45mL of diluted Iohexol oral solution, orally every 30 minutes x 2 doses. ; 1 month to 1 year old ; Administer 120mL of diluted Iohexol oral solution, orally every 30 min x 2 doses. ; 1 year old to 5 years old ; Administer 180mL of Iohexol orally every 30 min x 2 doses. ; 5 years old to 10 years old ; Administer 240mL of Iohexol orally every 30 min x 2 doses. ; Over 10 years old ; Administer 300mL of Iohexol orally every 30 min x 2 doses. ; ; CT RECTAL CONTRAST PROTOCOLS ADULTS: o Iohexol (Omnipaque) 240 mg/mL: Dilute 50mL of Omnipaque with 900mL of warm water in an enema bag.Administer the diluted solution rectally via gravity per patient's tolerance, up to 950mLs, one time only. ; CT IV CONTRAST PROTOCOLS for ADULT ; ADULTS: (If patient is less than 55kg and confirm dose with radiologist) o Iopadmidol (Isovue-300): Administer 2.2mL/kg of Iopamidol 61%, intravenously, one time only. o See table below for maximum dose, unless otherwise authorized by radiologist. If exam has been completed before the entire dose has been administered, stop the injection. o Multiple doses of iodine contrast within a 24-hour period are a risk factor for ALEAH and should beavoided if possible. Emergent or other unusual circumstances where multiple doses of contrast are required in a short interval time should prompt consideration by the referring professional and radiologist to discuss the risks and benefits of contrast media administration. o If exam not included in table below, contact radiologist for orders. Procedure Maximum Dose CT Head with Contrast Up to [address] Chest with Contrast Up to [address] Maxillofacial with Contrast Up to [address] Soft Tissue Neck with Contrast CT Chest Abdomen Pelvis with Contrast CT Chest Abdomen with Contrast CT Abdomen Pelvis with Contrast CT Pelvis with Contrast CT Angiogram Examinations (all) CT Soft Tissue Neck and Chest Abdomen Pelvis with Contrast Up to [address] Soft Tissue Neck and Chest with Contrast CT Urogram with Contrast CT IV CONTRAST PROTOCOLS for PEDIATRICS PEDIATRICS: Use weight-based dosing if patient is less than 55kg and confirm dose with radiologist. to 15 years old Administer 2.2mL/kg (to MAX of 80 mL) of Iopamidol (Isovue-300) 61%, intravenously, one time only 15 years old and older Administer 2.2mL/kg (to MAX of 150mL) of Iopamidol (Isovue-300) 61%, intravenously, one time only PROCEDURE SPECIFIC MRI MEDICATIONS: MRI ENTEROGRAPHY: GLUGACON ADMINISTRATION ADULTS: (patient 18 years or older) o Patient will receive 2 doses of Glucagon one dose 0.5mg IM administered by RN prior to the MRI exam beginning 2nd dose 0.5mg IV prior to the IV contrast being administered. (If the patient is diabetic call the radiologist to verify administration of Glucagon) PEDIATRICS: If the patient is diabetic call the radiologist to verify administration of Glucagon o Pediatric patient weighing 24.9 kg or less should have one dose of Glucagon 0.5mg IM administeredby RN prior to MRI exam beginning. o Pediatric patient weighing 25 kg or greater should have one dose of Glucagon 1 mg IM administeredby RN prior to the MRI exam beginning. MRI UROGRAM: LASIX ADMINISTRATION ADULTS: Call radiologist with any questions regarding administration of Lasix o Lasix 0.1mg per kg with a minimum dose of Lasix 5mg IV being given up to a max dose of Lasix 10mgIV being given. The Lasix should be administered by RN prior to the IV contrast being administered. ??? (Hold Lasix if: obstruction, anuria and hypersensitivity to furosemide, and electrolyte imbalance or hypotension should be corrected by RN before administering) MRI IV CONTRAST PROTOCOLS ADULTS: Multihance and Prohance can be used for most MRI scans Prohance should be used primarily. Multihance is useful in specific circumstances as directed by the radiologist or per the appropriate sections established protocols. Group I gadolinium contrast agents shall not be administered. Generally, multiple doses of gadolinium contrast should not be administered within a 24-hour period. In emergent or other unusual circumstances where this is necessary, only Group II agents should beadministered. For Liver Studies: Contact radiologist to determine use of one of the following: ??? Gadobenate Dimeglumine (Multihance) (0.1mmol/0.2mL), Administer 0.1mmol/kg = 0.2mL/kg up to MAXof 20 mL, intravenously, one time only ??? Gadoteridol (Prohance) (0.1mmol/0.2mL), Administer 0.1mmol/kg = 0.2mL/kg up to MAX of 20mL, intravenously, one time only ??? Gadoxetate (Eovist) (2.5 mmol/10mL), Administer 0.025mmol/kg = 0.1mL/kg up to MAX of 10mL, intravenously, one time only PEDIATRICS: Radiologist to determine need for contrast Term neonates up to 2 years: Gadobuterol (Gadavist) (1mmol/mL injection), Administer 0.1mmol/kg = 0.1mL/kg up to MAX of 14mmol=14mL, intravenously, one time only OR Gadobenate Dimeglumine (Multihance) (0.1mmol/mL), Administer 0.1mmol/kg = 0.1mL/kg up to MAX of 14mmol = 14mL, intravenously, one time only 2 years and older Gadobenate Dimeglumine (Multihance) (0.1mmol/0.2mL), Administer 0.1mmol/kg = 0.2mL/kg up to MAX of 20mL, intravenously, one time only OR Gadoteridol (Prohance) (0.1mmol/0.2mL), Administer 0.1mmol/kg = 0.2mL/kg up to MAX of 20mL, intravenously, one time only TABLE 1. ACR Manual Classification of Gadolinium-Based Agents Relative to Nephrogenic Systemic Fibrosis Group I: Agents associated with the greatest number of NSF cases: o Gadodiamide (Omniscan?? - Prodigy Game) o Gadopentetate dimeglumine (Magnevist?? - Infrastructure Networks) o Gadoversetamide (OptiMARK?? - Guerbet) Group II: Agents associated with few, if any, unconfounded cases of NSF: o Gadobenate dimeglumine (MultiHance?? - [employer]) o Gadobutrol (Gadavist?? - Infrastructure Networks; Gadovist in many countries) o Gadoteric acid (Dotarem?? - Guerbet, Clariscan - Prodigy Game) Gadoteridol (ProHance?? - [employer]) Group III: Agents for which data remains limited regarding NSF risk, but for which few, if any unconfounded cases of NSF have been reported: Gadoxetate disodium (Eovist - [employer]; Primovist in many countries) documented in this encounter Plan of Treatment Not on file documented as of this encounter Procedures Procedure Name Priority Date/Time Associated Diagnosis Comments CT SOFT TISSUE NECK W WO CONTRAST Routine 02/04/2021 11:04 AM CDT Hyperparathyroidism POC CREATININE Routine 02/04/2021 10:26 AM CDT documented in this encounter Results * CT SOFT TISSUE NECK W WO CONTRAST (02/04/2021 11:04 AM CDT) Anatomical Region Laterality Modality Neck Computed Tomogra phy 02/04/2021 11:0 8 AM CDT Impressions 02/04/2021 4:51 PM CDT IMPRESSION: 1. Small enhancing nodules identified posterior to the right and left lobes of the thyroid gland concerning for parathyroid adenomas. 2. 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 Enhancement of this structure is seen suggesting thyroid tissue within the thyroglossal duct cyst. 3. No mucosal mass or cervical lymphadenopathy identified. The examination was performed with the adjustment of mA according to the patient size and/or the use of Iterative Reconstruction Technique. ?? DICTATION LOCATION: [address] 02/04/2021 4:[address] SOFT TISSUE NECK WITH AND WITHOUT IV CONTRAST DATE: ??02/04/2021 11:04 AM HISTORY: Hyperparathyroidism. COMPARISON: Ultrasound head and neck from 02/04/2021 TECHNIQUE: ??Multislice CT images through the neck before and after intravenous administration of contrast following a parathyroid protocol. CONTRAST: IOPAMIDOL 61 % INTRAVENOUS SOLUTION (MULTI-DOSE BULK PACK). Given:75 mL. FINDINGS: There is a nodule identified posterior to the right thyroid gland measuring 1.4 x 0.5 x 0.8 cm. Posterior to the superior lobe of the left thyroid gland, there is a small nodule measuring 0.3 x 0.4 x 0.5 cm. In the correct clinical setting, parathyroid adenomas could have this appearance. These nodules are hypodense to the thyroid gland on the noncontrast images, enhancing similar to the thyroid gland after contrast and washout more quickly than the thyroid gland on the venous images. The mucosal surfaces of the nasopharynx, oropharynx and hypopharynx are normal. There is a cystic structure identified anterior to the thyroid cartilage and extending under the hyoid bone at the thyrohyoid ligament. This is consistent with a thyroglossal duct cyst. This structure measures approximately 0.7 x 0.8 cm. After contrast, this structure enhances homogeneously. Thyroid tissue within the thyroglossal duct cyst is suggested. The vascular structures are normal in caliber and well-opacified. No focal stenosis is seen. Small scattered lymph nodes are seen in the neck. There is no cervical lymphadenopathy. The parotid glands and submandibular glands are symmetric and normal. The visualized lung apices are clear. The osseous structures of the neck are intact. No fracture, lytic or blastic lesion is seen. Procedure Note Julia Jin MD - 02/04/2021 CT SOFT TISSUE NECK WITH AND WITHOUT IV CONTRAST DATE: 02/04/2021 11:04 AM HISTORY: Hyperparathyroidism. COMPARISON: Ultrasound head and neck from 02/04/2021 TECHNIQUE: Multislice CT images through the neck before and after intravenous administration of contrast following a parathyroid protocol. CONTRAST: IOPAMIDOL 61 % INTRAVENOUS SOLUTION (MULTI-DOSE BULK PACK). Given:75 mL. FINDINGS: There is a nodule identified posterior to the right thyroid gland measuring 1.4 x 0.5 x 0.8 cm. Posterior to the superior lobe of the left thyroid gland, there is a small nodule measuring 0.3 x 0.4 x 0.5 cm. In the correct clinical setting, parathyroid adenomas could have this appearance. These nodules are hypodense to the thyroid gland on the noncontrast images, enhancing similar to the thyroid gland after contrast and washout more quickly than the thyroid gland on the venous images. The mucosal surfaces of the nasopharynx, oropharynx and hypopharynx are normal. There is a cystic structure identified anterior to the thyroid cartilage and extending under the hyoid bone at the thyrohyoid ligament. This is consistent with a thyroglossal duct cyst. This structure measures approximately 0.7 x 0.8 cm. After contrast, this structure enhances homogeneously. Thyroid tissue within the thyroglossal duct cyst is suggested. The vascular structures are normal in caliber and well-opacified. No focal stenosis is seen. Small scattered lymph nodes are seen in the neck. There is no cervical lymphadenopathy. The parotid glands and submandibular glands are symmetric and normal. The visualized lung apices are clear. The osseous structures of the neck are intact. No fracture, lytic or blastic lesion is seen. IMPRESSION: 1. Small enhancing nodules identified posterior to the right and left lobes of the thyroid gland concerning for parathyroid adenomas. 2. 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 Enhancement of this structure is seen suggesting thyroid tissue within the thyroglossal duct cyst. 3. No mucosal mass or cervical lymphadenopathy identified. The examination was performed with the adjustment of mA according to the patient size and/or the use of Iterative Reconstruction Technique. DICTATION LOCATION: [address] Keanu Quinn MD CT ORDERABLES * POC CREATININE (02/04/2021 10:26 AM CDT) CREATININE POC 1.00 0.50 - 1.00 mg/dL 02/04/2021 10:26 AM CDT [facility] MULTI S[facility]/OPS [facility] GFR 55 mL/min/1. 73 sq meter 02/04/2021 10:26 AM CDT [facility] MULTI SITE/OPS [facility] Comment: eGFR has not been validated for use in the elderly (> 70 years of age), women, patients with serious co-morbid conditions, or persons with extremes of body size or muscle mass and should also be interpreted with caution in patients with acute kidney failure, dialysis dependent patients, patients reporting exceptional dietary intake (e.g. vegetarian diet, high protein diets, creatine supplementation), and patients with severe liver disease. Based on National Kidney Disease Education Program If patient is , please refer to the GFR result. GFR, >60 mL/min/1. 73 sq meter 02/04/2021 10:26 AM CDT [facility]I S[facility]/OPS [facility] UNDERCOLLAR MAKER NAME POC TRESSA HOLBROOK 02/04/2021 10:26 AM CDT [facility] S[facility]/OPS [facility] CRITICALTO POC 02/04/2021 10:26 AM CDT [facility] MULTI SITE/OPS [facility] Blood, whole 02/04/2021 10:2 6 AM CDT 02/04/2021 2:15 PM CDT Keanu Quinn MD POINT OF CARE TE [facility]OPS [facility] CLIA # [id number] [facility] [place] [address] documented in this encounter Visit Diagnoses Diagnosis Hyperparathyroidism Hyperparathyroidism, unspecified documented in this encounter Administered Medications Inactive Administered Medications - up to 3 most recent administrations Medication Order MAR Action Action Date Dose Rate Site iopamidoL (ISOVUE-300) 61 % injection (drawn from multi-use bulk pack) 75 mL 75 mL, IV, INTRA-PROCEDURE ONCE, 1 dose, Starting on Sun02/04/21 at 1104, Until Sun02/04/21 at 1030, Routine Contrast Given 02/04/2021 10:30 AM CDT 75 mL sodium chloride 0.9% bolus solution 25 mL 25 mL, IV, ONE TIME ONLY, 1 dose, On Sun02/04/21 at 1115, at 50 mL/hr, Administer over 30 Minutes, Routine New Bag 02/04/2021 10:30 AM CDT 25 mL 50 mL/hr sodium chloride flush injection 10 mL 10 mL, IV, SEE ADMIN INSTRUCTIONS, Starting on Sun02/04/21 at 1104, Until Sun02/04/21 at 1503, Routine Given 02/04/2021 10:30 AM CDT 10 mL documented in this encounter
--- OUTSIDE RECORDS SUMMARY | 2024-04-23 03:57 | XMS_ITS | Encounter Summary ---
Author Organization [facility] Address [address] Krishnan: Epic Prelude ADT VENKATESH MAGANA [address] Care Team Providers Care Open Hearth Worker Name Role Phone Justin Olvera MD Primary Care Provider [phone] Encounter Details Date Type Department Care Team (Latest Contact Info) Description 03/01/2021 Travel Social History Tobacco Use Types Packs/Day [...] have Coronavirus / COVID-19? No / Unsure 03/01/2021 1:14 PM CDT documented as of this encounter Plan of Treatment Not on file documented as of this encounter Visit Diagnoses Not on filedocumented in this encounter Care Teams Open Hearth Worker Relationship Specialty Start Date End Date Justin Olvera MD [facility] [place] [id number] PCP - General Internal Medicine 02/18/21 documented as of this encounter
--- OUTSIDE RECORDS SUMMARY | 2024-04-23 03:57 | XMS_ITS | Encounter Summary ---
Author Organization [facility] Address [address] [place] [address] Care Team Providers Care Oracle Engineer Name Role Phone Unavailable Primary Care Provider Unavailabl e Encounter Details Date Type Department Care Team (Latest Contact Info) Description 02/15/2021 Prep for Surgery [facility] [address] [place] [address] [place] [address] [facility] [address] [place] [address] Hyperparathyroidism (Primary Dx) Social History [...]
--- OUTSIDE RECORDS SUMMARY | 2024-04-23 03:57 | XMS_ITS | Clinical Summary ---
Author Organization [facility] Address [address], [address] [address] Phone Care Team Providers Care Insurance Risk Surveyor Name Role Phone Elio Tanner MD Primary Care Provider [phone] Medications polyethylene glycol (MIRALAX) Powder Mix the entire bottle with 64 oz of a clear liquid. Use as directed by the office for colonoscopy prep. 255 g 8 Active Social History Tobacco Use Types Packs/Day Years Used Date Smoking Tobacco: Never Assessed Comments Unknown Sex and Gender Information Value Date Recorded Sex Assigned at Not on file Legal Sex Female 12:28 AM CDT Gender Identity Not on file Sexual Orientation Not on file Plan of Treatment Health Maintenance Due Date Last Done Comments DEXA Bone Density 1955 Hepatitis C Virus (HCV) Screening 1955 TdaP Immunization 1955 Cologuard 2003 Immunochemical Fecal Occult Blood 2003 Mammogram 2003 Zoster Immunization (1 of 2) 2003 Pneumococcal Immunization (6 5+ years) (1 of 1 - PCV) 2018 Colonoscopy 10/04/2022 10/04/2017 Colorectal Cancer Screening 10/04/2022 SARS-COV-2 Immunization ( - 2022-24 season) 2023 Influenza Immunization (Seas on Ended) 2024 10/04/2017 Hepatitis B Immunization Aged Out No longer eligible based on patient's age to complete this topic Meningococcal Immunization (ACWY) Aged Out No longer eligible based on patient's age to complete this topic Rotavirus Immunization Aged Out No lo nger eligible based on patient's age to complete this topic Procedures Procedure Name Priority Date/Time Associated Diagnosis Comments HM COLONOSCOPY Routine 10/04/2017 from Last 3 Months or Most Recently Relevant to Health Maintenance Results * COLONOSCOPY (10/04/2017) Nolan Tolbert DO PROCEDURE/MINOR SURGICAL ORDERA BLES Final Result from Last 3 Months or Most Recently Relevant to Health Maintenance Care Teams Insurance Risk Surveyor Relationship Specialty Start Date End Date Elio Tanner MD [address] [place] [address] PCP - General Internal Medicine 01/17/17
--- OUTSIDE RECORDS SUMMARY | 2024-04-23 03:57 | XMS_ITS | Encounter Summary ---
Author Organization [facility] Address [address] [place] [address] Care Team Providers Care Inspector Agricultural Commodities Name Role Phone Unavailable Primary Care Provider Unavailabl e Reason for Referral * Radiology Services (Routine) - Closed Specialty Diagnoses / Procedures Referred By Francine andre Referred To Contact Diagnoses Hyperparathyroidism Procedures [place] [address] [address] Referral ID Status Reason Start Date Expiration Date Visits Re quested Visits Authorized [id number] Closed 01/31/2021 03/03/2022 1 1 * CT Scan (Routine) - Closed Specialty Diagnoses / Procedures Referred By Francine andre Referred To Contact Diagnoses Hyperparathyroidism Procedures CT SOFT TISSUE N[place] [address] [address] Referral ID Status Reason Start Date Expiration Date Visits Re quested Visits Authorized [id number] Closed 01/31/2021 03/03/2022 1 1 Encounter Details Date Type Department Care Team (Late st Contact Info) Description 01/31/2021 Orders Only [facility] Surgical Specialists [facility] [address] [place] [address] [place] [address] [address] Hyperparathyroidism Social History Tobacco Use Types Packs/Day Years Used Date Smoking Tobacco: Never Assessed Sex and Gender Information Value Date Recorded Sex Assigned at Not on file Gender Identity Not on file Sexual Orientation Not on file documented as of this encounter Plan of Treatment Not on file documented as of this encounter Results * US HEAD NECK TISSUES (02/04/2021 11:08 AM CDT) Anatomical Region Laterality Modality Head Ultrasound 02/04/2021 11:1 0 AM CDT Impressions 02/04/2021 12:24 PM CDT IMPRESSION: 5 mm hypoechoic nodule seen at the lower aspect left lobe could be within or adjacent to the thyroid gland. Differential includes small thyroid nodule, parathyroid adenoma, or a small lymph node. ?? Diffuse thyroid heterogeneity suggests thyroiditis. DICTATION LOCATION: Location [address] [place] [address] ACR 2017 TI-RADS Recommendations TR5 Highly suspicious (>=7 points) (risk of malignancy > 20%) >=1 cm: FNA 0.5-0.9 cm: follow-up US every year for 5 years <0.5 cm: no further evaluation TR4 Moderately suspicious (4-6 points) (risk of malignancy 5-20%) >=1.5 cm: FNA 1-1.4 cm: follow-up US in 1, 2, 3, and 5 years <1.0 cm: no further evaluation TR3 Mildly suspicious (3 points) (risk of malignancy 2-5%) >=2.5 cm: FNA 1.5-2.4 cm: follow-up US in 1, 3, and 5 years <1.5 cm: no further evaluation TR2 Not suspicious (2 points) and TR1 Benign (0 points) (risk of malignancy < 2%) No FNA or follow-up US Narrative 02/04/2021 12:24 PM CDT ULTRASOUND NECK TISSUES DATE: ??02/04/2021 11:08 AM HISTORY: See Diagnosis; Hyperparathyroidism COMPARISON: None FINDINGS: The right thyroid lobe measures 4.7 x 1.5 x 1.6 cm. The left thyroid lobe measures 4.7 x 1.2 x 1.6 cm. The isthmus measures six mm. Diffuse thyroid heterogeneity is noted suggesting thyroiditis, the appearance of which limits detection of nodules. There is a heterogeneous hypoechoic 5 mm nodule seen for example on image 55 which is either in the inferior aspect of the left lobe or is posterior/inferior to the left lobe, could be a small thyroid nodule, possibly a parathyroid adenoma given the clinical concern, versus a small lymph node. If this is a thyroid nodule it is heterogeneous hypoechoic, wider more than tall without distinct calcifications overall TR 4. No regional enlarged lymphadenopathy is seen. Procedure Note Beau Rich MD - 02/04/2021 ULTRASOUND NECK TISSUES DATE: 02/04/2021 11:08 AM HISTORY: See Diagnosis; Hyperparathyroidism COMPARISON: None FINDINGS: The right thyroid lobe measures 4.7 x 1.5 x 1.6 cm. The left thyroid lobe measures 4.7 x 1.2 x 1.6 cm. The isthmus measures six mm. Diffuse thyroid heterogeneity is noted suggesting thyroiditis, the appearance of which limits detection of nodules. There is a heterogeneous hypoechoic 5 mm nodule seen for example on image 55 which is either in the inferior aspect of the left lobe or is posterior/inferior to the left lobe, could be a small thyroid nodule, possibly a parathyroid adenoma given the clinical concern, versus a small lymph node. If this is a thyroid nodule it is heterogeneous hypoechoic, wider more than tall without distinct calcifications overall TR 4. No regional enlarged lymphadenopathy is seen. IMPRESSION: 5 mm hypoechoic nodule seen at the lower aspect left lobe could be within or adjacent to the thyroid gland. Differential includes small thyroid nodule, parathyroid adenoma, or a small lymph node. Diffuse thyroid heterogeneity suggests thyroiditis. DICTATION LOCATION: [place] [address] [facility] ACR 2017 TI-RADS Recommendations TR5 Highly suspicious (>=7 points) (risk of malignancy > 20%) >=1 cm: FNA 0.5-0.9 cm: follow-up US every year for 5 years <0.5 cm: no further evaluation TR4 Moderately suspicious (4-6 points) (risk of malignancy 5-20%) >=1.5 cm: FNA 1-1.4 cm: follow-up US in 1, 2, 3, and 5 years <1.0 cm: no further evaluation TR3 Mildly suspicious (3 points) (risk of malignancy 2-5%) >=2.5 cm: FNA 1.5-2.4 cm: follow-up US in 1, 3, and 5 years <1.5 cm: no further evaluation TR2 Not suspicious (2 points) and TR1 Benign (0 points) (risk of malignancy < 2%) No FNA or follow-up US Keanu Quinn MD US ORDERABLES * CT SOFT TISSUE NECK W WO [...] of Iterative Reconstruction Technique. ?? DICTATION LOCATION: Location [address] [place] [address] 02/04/2021 4:[address] SOFT TISSUE [...] use of Iterative Reconstruction Technique. DICTATION LOCATION: [address] Keanu Quinn MD CT ORDERABLES documented in this encounter Visit Diagnoses Diagnosis Hyperparathyroidism Hyperparathyroidism, unspecified Hyperparathyroidism Hyperparathyroidism, unspecified Hyperparathyroidism Hyperparathyroidism, unspecified documented in this encounter
--- OUTSIDE RECORDS SUMMARY | 2024-04-23 03:57 | XMS_ITS | Encounter Summary ---
Author Organization [facility] Address [address] [place] [address] Care Team Providers Care Vegetable Tier Name Role Phone Unavailable Primary Care Provider Unavailabl e Reason for Visit * Reason Comments Establish Care Encounter Details Date Type Department Care Team (Latest Contact Info) Description 02/10/2021 11:30 AM CDT Office Visit [facility] Surgical Specialists [facility] [address] [place] [address] [place] [address] [facility] [address] [place] [address] Hyperparathyroidism (Primary Dx) Social History [...] Sign Reading Time Taken Comments Blood Pressure 140/90 02/10/2021 11:23 AM CDT Pulse 89 02/10/2021 11:23 AM CDT Temperature - - Respiratory Rate - - Oxygen Saturation 98% 02/10/2021 11:23 AM CDT Inhaled Oxygen Concentration - - Weight 116.1 kg (256 lb) 02/10/2021 11:23 AM CDT Height 152.4 cm (5') 02/10/2021 11:23 AM CDT Body Mass Index 50 02/10/2021 11:23 AM CDT documented in this encounter Progress Notes * Keanu Quinn MD - 02/10/2021 11:30 AM CDT Images from the original note were not included. HISTORY OF PRESENT ILLNESS Kate Agudelo is a 65 y.o. lady with no significant PMH who presents for surgical evaluation and management of primary hyperparathyroidism Subjective Referred by Dr. Olvera from [facility]. Denies sxs of hypercalcemia including fatigue, abdominal pain, N/V/D, psychiatric sxs, Kidney stones, osteoporosis, muscle/joint pains. See below for all other ROS Patient does endorse history of left thyroid nodule status post lobectomy over 10 years ago currently on Synthroid daily. Patient is on baby aspirin for cardiovascular protection due to mother having [facility] in her 60s. Medical history includes type 2 diabetes on 1000 mg Metformin twice daily and Rybelsus 7 mg daily, hypertension on metoprolol, losartan, CCB verapamil. Surgical history includes benign stomach nodule status post partial gastrectomy in 2005, cholecystectomy, hernia repair. Family history includes mother from [place], father with pancreatic cancer, brother with leukemia. REVIEW OF SYSTEMS Review of Systems Constitutional: Negative. HENT: Negative. Eyes: Negative. Respiratory: Negative. Cardiovascular: Negative. Gastrointestinal: Negative. Endocrine: Negative. Genitourinary: Negative. Musculoskeletal: Negative. Neurological: Negative. Hematological: Negative. Psychiatric/Behavioral: Negative. No past medical history on file. No past surgical history on file. Social History Tobacco Use ??? Smoking status: Not on file Substance Use Topics ??? Alcohol use: Not on file ??? Drug use: Not on file No family history on file. Current Outpatient Medications Medication Instructions ??? aspirin (ECOTRIN EC) 81 mg, Oral, DAILY ??? ergocalciferol (VITAMIN D2) 5,000 Units, Oral, DAILY ??? levothyroxine (SYNTHROID) 88 mcg, Oral, DAILY ??? losartan (COZAAR) 100 mg, Oral, DAILY ??? metFORMIN (GLUCOPHAGE) 1,000 mg, Oral, DAILY ??? metoprolol succinate (TOPROL XL) 25 mg, Oral, DAILY ??? rosuvastatin (CRESTOR) 5 mg, Oral, EVERY 24 HOURS No Known Allergies Objective PHYSICAL EXAM Vitals: 02/10/21 1123 BP: (!) 140/90 Pulse: 89 SpO2: 98% Physical Exam Vitals reviewed. Constitutional: [...] is alert. Mental status is at baseline. IMAGING: Results for orders placed during the hospital encounter of 02/04/21 CT SOFT TISSUE NECK W WO CONTRAST Narrative CT SOFT TISSUE NECK WITH AND WITHOUT [...] fracture, lytic or blastic lesion is seen. Impression: 1. Small enhancing nodules identified posterior to [...] use of Iterative Reconstruction Technique. DICTATION LOCATION: [facility] - [facility] Results for orders placed during the hospital encounter of 02/04/21 US HEAD NECK TISSUES Narrative ULTRASOUND NECK TISSUES DATE: 02/04/2021 11:08 AM [...] 4. No regional enlarged lymphadenopathy is seen. Impression: 5 mm hypoechoic nodule seen at the lower aspect left lobe could be within or adjacent to the thyroid gland. Differential includes small thyroid nodule, parathyroid adenoma, or a small lymph node. Diffuse thyroid heterogeneity suggests thyroiditis. DICTATION LOCATION: [facility] - [facility] ACR 2017 TI-RADS Recommendations TR5 Highly [...] < 2%) No FNA or follow-up US No results found. ASSESSMENT and PLAN: ICD-10-CM ICD-9-CM 1. Hyperparathyroidism E21.3 252.00 - CT study (02/04) consistent with nodules posterior to the right and left lobes of the thyroid gland; however, unlikely that the left lobe gland will need to be resected -U/S 02/[address] study- 5 mm hypoechoic nodule seen at the lower aspect left lobe -PTH 100.5, Ca 10.7 -vit D 46.8, continue supplementation -No DEXA on file but states had one in last 5 years and was WNL -Given history, lab values, and imaging, overall clinical picture consistent with primary hyperparathyroidism??2/2??parathyroid adenoma - Plan for minimally invasive R parathyroidectomy with possible BL neck exploration and PTH and recurrent laryngeal nerve monitoring at this time to remove the adenoma -Discussed risk and complications of procedure, including potential for needing to resect more than1 parathyroid gland, recurrent laryngeal nerve injury and associated sequelae as well as approximate recovery time and potential for calcium supplementation especially within the first week postop -Discontinue aspirin 3 days prior to surgery -discussed thyroglossal duct cyst; namely, that these lesions are benign and do not require surgical management in adulthood -Answered all questions;??patient expressed understanding and amenable to plan;??consent form signed -appreciate the opportunity to participate in this patient's care -Patient seen and discussed with attending physician Dr. Rosa Maria Austin MD PGY-1 Family Medicine 02/10/2021 Attestation: I personally performed a history and physical examination of the patient and discussed the management of the patient with my resident Dr. Austin and reviewed their medical records myself including recent imaging as well as laboratory findings and agree with the history, physical exam, and plan of care including follow-up. I reviewed the resident's note and agree with the documented findings and plan of care. I spent a total of 60 minutes with the patient of which 50 minutes were spent in counselabout the details of the condition, specifically the surgical management of Hyperparathyroidism. Thank you for involving me in the care of this patient. Please don't hesitate to contact me if you have any questions or concerns. in kind regards, Keanu Quinn MD, FACS, [facility] Surgical Oncology and Endocrine Surgery [facility] documented in this encounter Plan of Treatment Not on file documented as of this encounter Visit Diagnoses Diagnosis Hyperparathyroidism- Primary Hyperparathyroidism, unspecified documented in this encounter
--- OUTSIDE RECORDS SUMMARY | 2024-04-23 03:57 | XMS_ITS | Encounter Summary ---
Author Organization [facility] Address [address] Krishnan: Epic Prelude ADT VENKATESH MAGANA [address] Care Team Providers Care Generation Engineer Name Role Phone Unavailable Primary Care Provider Unavailabl e Encounter Details Date Type Department Care Team (Latest Contact Info) Description 02/10/2021 Travel Social History Tobacco Use Types Packs/Day [...]
--- OUTSIDE RECORDS SUMMARY | 2024-04-23 03:57 | XMS_ITS | Encounter Summary ---
Author Organization [facility] Address [address] [place] [address] Care Team Providers Care Construction Engineering Manager Name Role Phone Justin Olvera MD Primary Care Provider [phone] Encounter Details Date Type Department Care Team (Late st Contact Info) Description 03/03/2021 Orders Only [facility] Pre Procedure Viral Testing [place] [id number] [place] [address] Treasure Panchal Preop examination Social History Tobacco Use Types Packs/Day Years [...] Procedure Name Priority Date/Time Associated Diagnosis Comments 2019 NOVEL CORONAVIRUS (COVID-19) PCR DETECTION Routine 03/03/2021 2:07 PM CDT Preop examination documented in this encounter Results * 2019 NOVEL CORONAVIRUS (COVID-19) PCR DETECTION (03/03/2021 2:07 PM CDT) COVID-19 PCR NOT DETECTED Not Detected 03/04/20 2:25 AM CDT [facility] 03/04/2021 2:25 AM CDT [facility] [employer] [facility] Upper Respiratory ENTIRE NASOPHARYNX / Unknown Collection / Unknown 03/03/2021 2:07 PM CDT 03/03/2021 9:34 PM CDT Narrative [facility] - 03/04/2021 2:25 AM CDT This test has [...] rule out infection with the 2019-Novel Coronavirus. Keanu Quinn MD MICROBIOLOGY - G ENERAL ORDERABLES [facility] [employer] [facility] CLIA# [id number] [address] [place] [address] documented in this encounter Visit Diagnoses Diagnosis Preop examination Preoperative examination, unspecified documented in this encounter Care Teams Construction Engineering Manager Relationship Specialty Start Date End Date Justin Olvera MD [address] [place] [address] PCP - General Internal Medicine 02/18/21 documented as of this encounter
--- OUTSIDE RECORDS SUMMARY | 2024-04-23 03:57 | XMS_ITS | Encounter Summary ---
Author Organization [facility] Address [address] [place] [address] Care Team Providers Care Agile Tester Name Role Phone Unavailable Primary Care Provider Unavailabl e Reason for Referral * Radiology Services (Routine) - Closed Specialty Diagnoses / Procedures Referred By Francine andre Referred To Contact Diagnoses Hyperparathyroidism Procedures [place] [address] [place] [address] Referral ID Status Reason Start Date Expiration Date Visits Re quested Visits Authorized [id number] Closed 01/31/2021 03/03/2022 1 1 Reason for Visit * Radiology Services (Routine) - Closed Specialty Diagnoses / Procedures Referred By Francine andre Referred To Contact Diagnoses Hyperparathyroidism Procedures [place] [address] [place] [address] Referral ID Status Reason Start Date Expiration Date Visits Re quested Visits Authorized [id number] Closed 01/31/2021 03/03/2022 1 1 Encounter Details Date Type Department Care Team (Latest Contact Info) Description 02/04/2021 9:55 AM CDT - 02/04/2021 11:59 PM CDT Hospital Encounter [facility] [address] [place] [address] [place] [address] [address] [place] [address] Discharge Disposition: Home or Self [...] potassium 01/08/2021 documented as of this encounter Plan of Treatment Not on file documented as of this encounter Procedures Procedure Name Priority Date/Time Associated Diagnosis Comments US HEAD NECK TISSUES Routine 02/04/2021 11:08 AM CDT Hyperparathyroidism documented in this encounter Results * US HEAD NECK [...] Diffuse thyroid heterogeneity suggests thyroiditis. DICTATION LOCATION: [address] 2017 TI-RADS Recommendations TR5 Highly suspicious (>=7 [...] thyroid heterogeneity suggests thyroiditis. DICTATION LOCATION: Location [address] [place] [address] ACR 2017 TI-RADS Recommendations TR5 Highly suspicious [...] follow-up US Keanu Quinn MD US ORDERABLES documented in this encounter Visit Diagnoses Diagnosis Hyperparathyroidism Hyperparathyroidism, unspecified documented in this encounter
--- OUTSIDE RECORDS SUMMARY | 2024-04-23 03:57 | XMS_ITS | Encounter Summary ---
Author Organization [facility] Address [address] Krishnan: Epic Prelude ADT [place]KATES[place] MAGANA [address] Care Team Providers Care Train Electronic Technician Name Role Phone Unavailable Primary Care Provider Unavailabl e Encounter Details Date Type Department Care Team (Latest Contact Info) Description 01/31/2021 Travel Social History Tobacco Use Types Packs/Day [...] have Coronavirus / COVID-19? No / Unsure 01/31/2021 11:34 AM CDT documented as of this encounter Plan of Treatment Not on file documented as of this encounter Visit Diagnoses Not on filedocumented in this encounter
--- OUTSIDE RECORDS SUMMARY | 2024-04-23 03:57 | XMS_ITS | Encounter Summary ---
Author Organization [facility] Address [address] Kirshnan: Epic Prelude ADT [place]ATES[place] MAG[place] [address] Care Team Providers Care Sheriff'S Detective Name Role Phone Unavailable Primary Care Provider Unavailabl e Encounter Details Date Type Department Care Team (Latest Contact Info) Description 02/04/2021 Travel Social History Tobacco Use Types Packs/Day [...]
--- OUTSIDE RECORDS SUMMARY | 2024-04-23 03:57 | XMS_ITS | Encounter Summary ---
Author Organization [facility] Address [address] [place] [address] Care Team Providers Care Construction Technician Name Role Phone Justin Olvera MD Primary Care Provider [phone] Reason for Visit * Auth/Cert Specialty Diagnoses / Procedures Referred By Francine t Referred To Contact Diagnoses [place] [address] [facility] [address] [place] [address] Referral ID Status Reason Start Date Expiration Date Visits Re quested Visits Authorized [id number] 02/14/2021 1 1 Encounter Details Date Type Department Care Team (Latest Contact Info) Description 03/08/2021 8:40 AM CDT - 03/08/2021 4:15 PM CDT Hospital Encounter [facility] Pre Procedure Phase II [id number] [place] [address] [place] [address] [address] [facility] [address] [place] [address] Discharge Disposition: Home or Self [...] Sign Reading Time Taken Comments Blood Pressure 132/74 03/08/2021 3:44 PM CDT Pulse 75 03/08/2021 3:44 PM CDT Temperature 37 ??C (98.6 ??F) 03/08/2021 3:10 PM CDT Respiratory Rate 20 03/08/2021 2:45 PM CDT Oxygen Saturation 97% 03/08/2021 3:44 PM CDT Inhaled Oxygen Concentration - - [...] occurs, take two TUMS tablets and call [phone]. For the next five days, do not [...] or electrical equipment for 24 hours (including chair installer, curling iron). After general anesthesia, it take [...] Tello MD - 03/08/2021 1:16 PM CDT [facility] OPERATIVE REPORT - [id number] Date of Procedure: 03/08/2021 Name: Kate Agudelo [...] MD Anesthesiologist - Angelia Torres MD STAFF: Flap Curer - NADIA RUBIN Perioperative Nurse - NARCISA RAMOS Miniature Set Designer - REGGIE KEEN Scrub - OSCAR ADKINS [...] operation. A 3 cm incision was created nursing home between the cricoid cartilage and the sternal [...] was identified and was tested using the [place] monitoring device. With a2.0mA stimulus, there nerve [...] any complications and was transferred to recovery. [id number] by NATHALIA TELLO MD, 03/08/2021 13:16 CDT (Approved) Created in [facility] Surgical COUNTS INCLUDE 234 BEDS AT THE [facility] * Aracelis-OP - Piva-Vanessa Camarena RN - 02/23/2021 12:44 PM CDT Patient to obtain COVID testing at [facility] per protocol to be done 03-03-21 for [...] Needs RECURRENT LARYNGEAL NERVE MONITORING PT'S INSURANCE [facility] MEDICARE ADVANTAGE. LINK'D PER PEPPER [id number] MONITORING LINK'D WITH [place] MARISOL'D PER PEPPER NOTIFIED PSA AND [place] OF DATE CHANGE. POC GLUCOSE Routine 03/08/2021 10:08 AM CDT documented in this encounter Results * (ABNORMAL) POC GLUCOSE (03/08/2021 1:19 PM CDT) GLUCOSE POC 116(H) 74 - 99 mg/dL 03/08/2021 1:19 PM CDT [facility] POINT OF CARE PROCESS DEVELOPER NAME POC SUZIE SALINAS 03/08/2021 1:19 PM CDT [facility] POINT OF CARE Blood, whole 03/08/2021 1:19 PM CDT 03/08/2021 1:23 PM CDT Nathalia Tello MD POINT OF CARE TE STING [facility] POINT OF CARE CLIA # [id number] [place] [address] * PTH, INTEROPERATIVE POST RESECTION (03/08/2021 11:52 AM CDT) PTH, INTACT, POSTRESECTION 16.8 pg/mL 03/08/2021 12:32 PM CDT [facility] PTH % OF BASELINE 4 % 021 12:32 PM CDT [facility] TIME POST INIT RESECTION 15 Minutes 03/08/2021 12:32 PM CDT [facility] Blood BLOOD SPECIMEN / Unknown Venipuncture / Unknown 03/08/2021 11:52 AM CDT 03/08/2021 12:02 PM CDT Narrative [facility] [facility] - 03/08/2021 12:32 PM CDT Successful is < or = 50% of the baseline value. Nathalia Tello MD CHEMISTRY ORDERA BLES [facility] CLIA# [id number] [place] [address] * PTH, INTEROPERATIVE POST RESECTION (03/08/2021 11:47 AM CDT) PTH, INTACT, POSTRESECTION 19.4 pg/mL 03/08/2021 12:22 PM CDT [facility] [employer] [facility] PTH % OF BASELINE 4 % 021 12:22 PM CDT [facility] [employer] [facility] TIME POST INIT RESECTION 10 Minutes 03/08/2021 12:22 PM CDT [facility] Blood BLOOD SPECIMEN / Unknown Venipuncture / Unknown 03/08/2021 11:47 AM CDT 03/08/2021 12:01 PM CDT Narrative [facility] [employer] [facility] - 03/08/2021 12:22 PM CDT Successful is < or = 50% of the baseline value. Nathalia ODOM Performing Organization Address [facility] Co de Phone Number [facility]# [id number] [place] [address] * PTH, INTEROPERATIVE POST RESECTION (03/08/2021 11:42 AM CDT) Pathologist [facility] PTH, INTACT, POSTRESECTION 25.3 pg/mL 03/08/2021 12:14 PM CDT [facility] PTH % OF BASELINE 5 % 021 12:14 PM CDT [facility] TIME POST INIT RESECTION 5 Minutes 03/08/2021 12:14 PM CDT [facility] Blood BLOOD SPECIMEN / Unknown Venipuncture / Unknown 03/08/2021 11:42 AM CDT 03/08/2021 11:52 AM CDT Narrative [facility] - 03/08/2021 12:14 PM CDT Successful is < or = 50% of the baseline value. Nathalia ODOM Performing Organization Address [facility] de Phone Number [facility]# [id number] [place] [address] * PATHOLOGY (03/08/2021 11:39 AM CDT) Pathologist [facility] CASE REPORT Surgical Pathology Report ? Case: [id number] ? Authorizing Provider: ??Nathalia Tello MD ??Collected: ? 03/08/2021 11:39 AM ? Ordering Location: ? [facility] ? Received: ?03/08/2021 11:50 AM ? Operating Room ? Pathologist: ? Gema Regalado MD ? Specimens: ?? A) - Parathyroid gland, right superior parathyroid biopsy ? B) - Parathyroid gland, right superior parathyroid ? 12:49 PM [facility] [employer] [facility] FINAL DIAGNOSIS Parathyroid gland, right superior, excisions (x2): -Hypercellular parathyroid, consistent with parathyroid adenoma eb 12:49 PM [facility] [employer] [facility] S DESCRIPTION Received fresh labeled with the [...] bisected, entirely submitted in B1. 12:49 PM [facility] [employer] [facility] MICROSCOPIC DESCRIPTION Permanent sections confirm the frozen section diagnosis. The first specimen represents parathyroid tissue. The second specimen shows hypercellular parathyroid tissue with a rim of normal parathyroid 12:49 PM CDT [facility] INTRAOPERATIVE CONSULTATION Parathyroid, right superior, frozen section: -Parathyroid tissue eb 12:49 PM CDT [facility] OPERATIVE PROCEDURE 1: PARATHYROIDECTOMY 12:49 PM CDT [facility] CLINICAL INFORMATION HYPERARATHYROIDISM 12:49 PM CDT [facility] COMMENT Immunohistochemical stains were performed, if any, and interpreted at [facility] ([facility]) Laboratory with appropriately staining controls. This test was developed and its performance characteristics determined by [facility] Lab. It has not been cleared or [...] for these and other antigens. 12:49 PM CDT [facility] Tissue (Parathyroid gland) Collection / Unknown 03/08/2021 11:39 AM CDT 03/08/2021 11:50 AM CDT Tissue specimen (specimen) (Parathyroid gland) Collection / Unknown 03/08/2021 12:34 PM CDT 03/08/2021 1:50 PM CDT Nathalia Tello MD PATHOLOGY/CYTOLO GY ORDERABLES [facility] CLIA# [id number] [place] [address] * PTH INTEROPERATIVE BASELINE (03/08/2021 11:26 AM CDT) PTH, INTACT, BASELINE 472.0 pg/mL 03/08/2021 12:01 PM CDT [facility] Blood BLOOD SPECIMEN / Unknown Venipuncture / Unknown 03/08/2021 11:26 AM CDT 03/08/2021 11:39 AM CDT Nathalia Tello MD CHEMISTRY ORDERA BLES Performing Organization Address City/[facility]/ZIP Co de Phone Number [facility] CLIA# [id number] [place] [address] * (ABNORMAL) POC GLUCOSE (03/08/2021 10:08 AM CDT) Pathologist [facility] GLUCOSE POC 106(H) 74 - 99 mg/dL 03/08/2021 10:08 AM CDT [facility] POINT OF CARE PROCESS DEVELOPER NAME POC NARGIS GASTELUM 03/08/2021 10:08 AM CDT [facility] POINT OF CARE Blood, whole 03/08/2021 10:0 8 AM CDT 03/08/2021 10:34 AM CDT Nathalia Tello MD POINT OF CARE TE STING Performing Organization Address City/[facility]/ZIP Co de Phone Number [facility] POINT OF CARE CLIA # [id number] [place] [address] * 2019 NOVEL CORONAVIRUS (COVID-19) PCR DETECTION (03/03/2021 2:07 PM CDT) [facility] COVID-19 PCR NOT DETECTED Not Detected 03/04/20 2:25 AM CDT [facility] 03/04/2021 2:25 AM CDT [facility] Upper Respiratory ENTIRE NASOPHARYNX / Unknown Collection / Unknown 03/03/2021 2:07 PM CDT 03/03/2021 9:34 PM CDT Narrative [facility] - 03/04/2021 2:25 AM CDT This test [...] Tello MD MICROBIOLOGY - G ENERAL ORDERABLES [facility]# [id number] [place] [address] documented in this encounter Visit Diagnoses Diagnosis Hyperparathyroidism- Primary Hyperparathyroidism, unspecified Preop examination Preoperative examination, unspecified documented in this encounter Administered Medications Inactive Administered Medications - up to 3 most recent administrations Medication Order MAR Action Action Date Dose Rate Site fentaNYL PF (SUBLIMAZE) 50 mcg/mL injection 25 mcg 25 mcg, IV, POST-PROCEDURE Q 5 MINUTES PRN, 4 doses, Starting on Sun03/08/21 at 1004, Until Sun03/08/21 at 190, Pain, Routine, PACU HYDROmorphone (DILAUDID) 2 mg/mL [...] on Sun03/08/21 at 1015, Until Sun03/08/21 at 190, Routine, PACU lidocaine 1 % (XYLOCAINE) injection 5 mg 5 mg (0.5 mL), Infiltration, PRE-PROCEDURE ONCE, 1 dose, Starting on Sun03/08/21 at 0911, Until Sun03/08/21 at 190, Routine, Pre-op naloxone (NARCAN) 0.4 mg/mL injection [...] Surgical prophylaxis 1055 (Given - Provid er: Noris Bourne CRNA) lidocaine 1 % (XYLOCAINE) injection [...] PACU documented in this encounter Care Teams Construction Technician Relationship Specialty [place] [address] [place] [phone] PCP - General Internal Medicine 02/18/21 documented as of this encounter
--- OUTSIDE RECORDS SUMMARY | 2024-04-23 03:57 | XMS_ITS | Encounter Summary ---
Author Organization [facility] Address [address] [place] [address] Care Team Providers Care Talent Development Coordinator Name Role Phone Alisson Olvera MD Primary Care Provider [phone] Encounter Details Date Type Department Care Team (Latest Contact Info) Description 03/03/2021 12:50 PM CDT - 03/03/2021 11:59 PM CDT Hospital Encounter [facility] Pre Surgical Assessment [address] [place] [address] Alisson Olvera MD [address] [place] [address] Discharge Disposition: Home or Self Care Anesthesia Record Procedure Summary Procedure Name Responsible [...] and Graph timeline. 1307 An Stop Meds * Agents No agents on file. * Blood No blood administrations on file. [...] Continuous waveform capnography 03/08/21 1043 by Noris Bourne, JOANNA 03/08/21 1251 by Noris Bourne CRNA Incision [...] Sign Reading Time Taken Comments Blood Pressure 199/75 03/03/2021 1:13 PM CDT Pulse 103 03/03/2021 1:13 PM CDT Temperature - - Respiratory Rate - - Oxygen Saturation 96% 03/03/2021 1:13 PM CDT Inhaled Oxygen Concentration - - Weight 115.9 kg (255 lb 9.6 oz) 03/03/2021 1:13 PM CDT Height 154.9 cm (5' 1 ) 03/03/2021 1:13 PM CDT Body Mass Index 48.3 03/03/2021 1:13 PM CDT documented in this encounter Medications at Time [...] daily. 03/08/2021 documented as of this encounter OR Notes * Aracelis-OP - Vanessa Leos RN - 03/03/2021 1:15 PM CDT TB Screen instructions: Complete the TB screening by asking your patient/family about symptoms/risk factors. Delete symptoms/risk factors that do not apply to your patient. Add up numbers in front of relevant symptoms/risk factors and type in total below. Symptoms/complaints: ??? 3=Cough (prolonged 3 weeks or more) due to allergies Risk Factors: ??? 0=None Total symptom/risk factor values= If total is 5 or greater, initiate Airborne Isolation and contact provider. * Aracelis-OP - Vanessa Leos RN - 03/03/2021 1:15 PM CDT Denies rashes, bruises, and open wounds. documented in this encounter Plan of Treatment Not on file documented as of this encounter Procedures Procedure Name Priority Date/Time Associated Diagnosis Comments EKG 12-LEAD Routine 03/03/2021 1:35 PM CDT CBC WITHOUT DIFFERENTIAL Routine 03/03/2021 1:29 PM CDT BASIC METABOLIC PANEL Routine 03/03/2021 1:29 PM CDT documented in this encounter Results * EKG 12-LEAD (03/03/2021 1:35 PM CDT) 03/03/2021 1:35 PM CDT Narrative INTERFACE SYSTEM - 03/03/2021 2:40 PM CDT ? Stationary ECG Study ? [facility] ? Test Date: ?03/03/2021 1:35 PM Pat Name: ? KATESRAVANI CASTORENAGUS ?Department: ?? 60 ?Room: ? Gender: ? F ?Medical Research Associate: ?? AF : ?1955 ? Requested By: ALISSON OLVERA ?? Order Number: [id number] ?Reading MD: ?? Zac Jain ? Measurements Intervals ?[place] ? Rate: ? 85 ? P: ?54 CT: ? 188 ?QRS: ?248 QRSD: ? 98 ? T: ?42 QT: ? 378 ? QTc: ?449 ? Interpretive Statements ? Normal sinus rhythm Right superior axis deviation Low voltage QRS Abnormal ECG No previous ECG available for comparison Electronically Signed On 03-03-2021 14:40:53 CDT by Zac Jain Procedure Note Zac Jain MD - 03/03/2021 Stationary ECG Study [facility] Test Date: 03/03/2021 1:35 PM Pat Name: KATE CASTILLO Department: 60 Room: Gender: F Medical Research Associate: AF : 1955 Requested By: ALISSON OLVERA Order Number: [id number] Reading MD: Zac Jain Measurements Intervals [place] Rate: 85 P: 54 CT: 188 QRS: 248 QRSD: 98 T: 42 QT: 378 QTc: 449 Interpretive Statements Normal sinus rhythm Right superior axis deviation Low voltage QRS Abnormal ECG No previous ECG available for comparison Electronically Signed On 03-03-2021 14:40:53 CDT by Zac Jain Armida Rueda MD ECG ORD ERABLES INTERFACE SYSTEM Refer to clinic/hospital department * (ABNORMAL) CBC WITHOUT DIFFERENTIAL (03/03/2021 1:29 PM CDT) WBC 10.0 4.5 - 10.5 K/uL 03/03/2021 2:53 PM CDT [facility] RBC 5.03(H) 3.90 - 4.90 M/uL 03/03/2021 2:53 PM CDT [facility] HEMOGLOBIN 13.4 11.8 - 14.8 g/dL 03/03/2021 2:53 PM CDT [facility] HEMATOCRIT 41.3 35.5 - 44.0 % 03/03/2021 2:53 PM CDT [facility] MCV 82.0 82.0 - 99.0 fL 03/03/2021 2:53 PM CDT [facility] MCH 26.5(L) 27.8 - 34.5 pg 03/03/2021 2:53 PM CDT [facility] MCHC 32.4(L) 32.5 - 35.5 g/dL 03/03/2021 2:53 PM CDT [facility] PLATELETS 314 160 - 420 K/uL 03/03/2021 2:53 PM CDT [facility] MPV 7.8(L) 8.7 - 12.7 fL 03/03/2021 2:53 PM CDT [facility] RDW 15.0(H) 11.5 - 14.5 % 03/03/2021 2:53 PM CDT [facility] Blood Venipuncture / Unknown 03/03/2021 1:29 PM CDT 03/03/2021 2:51 PM CDT Armida Rueda MD HEMATOL OGY ORDERABLES [facility] CLIA# [id number] [place] [address] * (ABNORMAL) BASIC METABOLIC PANEL (03/03/2021 1:29 PM CDT) SODIUM 139 136 - 145 mmol/L 03/03/2021 3:16 PM CDT [facility] POTASSIUM 4.4 3.4 - 5.1 mmol/L 03/03/2021 3:16 PM CDT [facility] CHLORIDE 104 98 - 107 mmol/L 03/03/2021 3:16 PM CDT [facility] CO2 21(L) 22 - 29 mmol/L 03/03/2021 3:16 PM CDT [facility] CALCIUM 10.7(H) 8.6 - 10.4 mg/dL 03/03/2021 3:16 PM CDT [facility] BUN 17 6 - 20 mg/dL 03/03/2021 3:16 PM CDT [facility] CREATININE 1.05(H) 0.51 - 0.95 mg/dL 03/03/2021 3:16 PM CDT [facility] GLUCOSE 108(H) 74 - 99 mg/dL 03/03/2021 3:16 PM CDT [facility] GFR 52 mL/min/1.7 3 sq meter 03/03/2021 3:16 PM CDT [facility] Comment: eGFR has not been validated for [...] refer to the GFR result. GFR, >60 mL/min/1.7 3 sq meter 03/03/2021 3:16 PM CDT [facility] ANION GAP 14 8 - 16 mmol/L 03/03/2021 3:16 PM CDT [facility] Blood Venipuncture / Unknown 03/03/2021 1:29 PM CDT 03/03/2021 2:43 PM CDT Armida Rueda MD FRENCH INSTRUCTOR RY ORDERABLES [facility] CLIA# [id number] [place] [address] documented in this encounter Visit Diagnoses Not on filedocumented in this encounter Care Teams Talent Development Coordinator Relationship Specialty Start Date End Date Alisson Olvera MD [address] [place] [address] PCP - General Internal Medicine 02/18/21 documented as of this encounter
== END 2024-04-19 10:14 | disposition home or self-care (01) ==
LOC: ANHIMG 10:15
PROVIDERS: PCP Nurse Practitioner; Visit Provider Obstetrics & Gynecology
DX: Z12.31 Encounter for screening mammogram for malignant neoplasm of breast (principal)
CPT/HCPCS: 77063; 77067

== ENCOUNTER 2025-04-21 09:42 | Outpatient (CLI) | payer MEDICARE, SELFPAY ==
--- NOTE | ~2025-04-21 | MM_ITS ---
EXAMINATION: MM screening [facility] BI w ehsan HISTORY: Screening TECHNIQUE: Craniocaudal and mediolateral oblique 3-D tomosynthesis images were obtained and synthetic 2-D images were generated. CAD analysis was submitted and interpreted. COMPARISON: 04/19/2024. BREAST PARENCHYMAL COMPOSITION: Not Dense: The breasts are almost entirely fatty. FINDINGS: There is no evidence of suspicious mass, calcification, or architectural distortion to suggest malignancy in either breast. Scattered benign-appearing calcifications are present. IMPRESSION: 1. No mammographic evidence of malignancy. 2. Recommend routine screening mammography in one year. BI-RADS Category 2: Benign finding(s). Reviewed, dictated and finalized at location C. [facility]
--- OUTSIDE RECORDS SUMMARY | 2025-04-21 10:56 | XMS_ITS | Clinical Summary ---
Author Organization [facility] Address [address] [place] [address] Care Team Providers Care Assistant Professor Of Economics Name Role Phone Justin Olvera MD Primary Care Provider [phone] Allergies No known active allergies Medications aspirin (ECOTRIN EC) 81 mg Tablet, Delayed Release (E.C.) Take 81 mg by mouth daily. 0 Active levothyroxine 88 mcg tablet Take 88 mcg by mouth daily. 1 Active losartan (COZAAR) 100 mg tablet Take 100 mg by mouth daily. Losartan potassium 1 Active metFORMIN (GLUCOPHAGE) 1,000 mg tablet Take [...] as needed for Pain (knee pain). Active cholecalciferol , Vitamin D3, 125 mcg (5,000 unit) Capsule Take 5,000 Units by mouth daily. Active verapamiL (VERELAN) 360 mg Sustained Release 24 hour capsule Take 360 mg by mouth daily. 1 Active Rybelsus 7 mg Tablet Take 7 mg by mouth daily. 1 Active loratadine (CLARITIN) 10 mg tablet Take 10 mg by mouth 1 time daily as needed for Allergies. Active Active Problems Problem Noted Date Diagnosed Date Hyperparathyroidism 02/11/2021 Social History Tobacco Use Types Packs/Day Years Used Date Smoking Tobacco: Never Smokeless Tobacco: Never Alcohol Use Standard Drinks/Week Comments Never 0 (1 standard drink = 0.6 oz pur e alcohol) Comments No Sex and Gender Information Value Date Recorded Sex Assigned at Not on file Legal Sex Female 10:46 AM CDT Gender Identity Not on file Sexual Orientation Not on file Last Filed Vital Signs Vital Sign Reading Time Taken Comments Blood Pressure 122/88 09/22/2021 2:02 PM CDT Pulse 78 09/22/2021 2:02 PM CDT Temperature 37.1 C (98.7 F) 09/22/2021 2:02 PM CDT Respiratory Rate 20 03/08/2021 2:45 [...] Flex Sig/CT Colonography Q 5 years 1998 PNEUMOCOCCAL VACCINE 50+ YEARS (1 of 1 - PCV) 04/18/20 03 ZOSTER VACCINE (1 of 2) 2003 OSTEOPOROSIS SCREENING 2018 INFLUENZA VACCINE (#1) 2024 02/20/2019 RSV VACCINE (60+ or ) (1 - 1-dose 75+ series) 2028 Medical Devices Implanted Type Area Utility Porter Device Identifier Shelf Expiration Date Model / Serial / Lot Clip Ligating Horizon Ti 24 [id number] Rp - [id number] Implanted:Qty : 1 on 03/08/2021 by Keanu Quinn MD at [facility] Right: Neck TELEFLEX- WECK CLOSURE SYS [id number] RP / / Clip Ligating Horizon Med Ti [id number] - [facility] - [id number] Implanted:Qty : 1 on 03/08/2021 by Keanu Quinn MD at [facility] Right: Neck TELEFLEX- WECK CLOSURE SYS [id number] / / Hemostat Surg Snow 2x4in 2081 [id number] Implanted:Qty : 1 on 03/08/2021 by Keanu Quinn MD at [facility] Right: Neck [employer] 01/04/20232081 / / [id number] Insurance RX [employer] RX Member Subscriber Plan / Payer (Ef fective 2019-Present) Name:Kate Agudelo Relation to Subscriber:Self Name:Kate Agudelo Payer ID:Not on file Group ID:[id number] Type:RX Medicare Part D Address: [address] [employer] [place] [employer] (INTERNAL) [facility] Advance Directives For more information, please contact: [phone] * Full Code (Latest Code Status on File) Date Activated Date Inactivated Comments 03/08/2021 10:05 AM 03/08/2021 7:08 PM * Full Code Date Activated Date Inactivated Comments 03/08/2021 9:11 AM 03/08/2021 10:04 AM Care Teams Assistant Professor Of Economics Relationship Specialty Start Date End Date Justin Olvera MD [address] [place] [phone] PCP - General Internal Medicine 02/18/21
--- OUTSIDE RECORDS SUMMARY | 2025-04-21 10:56 | XMS_ITS | Clinical Summary ---
Author Organization [facility] Address [address] [facility], [address] [address] Phone Care Team Providers Care Sales Professional Bilingual Name Role Phone Elio Tanner MD Primary Care Provider [phone] Medications polyethylene glycol (MIRALAX) Powder Mix the [...] Health Maintenance Due Date Last Done Comments Hepatitis C Virus (HCV) Screening 1955 TdaP Immunization 1955 Cologuard 1998 Immunochemical Fecal Occult Blood 1998 Pneumococcal Immunization (5 0+ years) (1 of 1 - PCV) 2003 Zoster Immunization (1 of 2) 2003 Colonoscopy 10/04/2022 10/04/2017 Colorectal Cancer Screening 10/04/2022 Influenza Immunization (#1) 2025 SARS-COV-2 Immunization ( - season) 2025 Respiratory Syncytial Virus (RSV) Immunization (Adult) (1 - 1-dose 75+ series) 2028 Hepatitis B Immunization Aged Out No longer eligible based on patient's age to complete this topic Human Papillomavirus (HPV) Immunization Aged Out No longer eligible b ased on patient's age to complete this topic Meningococcal Immunization (ACWY) Aged Out No longer eligible based on patient's age to complete this topic Rotavirus Immunization Aged Out No lo nger eligible based on patient's age to complete this topic Procedures Procedure Name Priority Date/Time Associated Diagnosis Comments COLONOSCOPY Routine 10/04/2017 from Last 3 Months or Most Recently Relevant to Health Maintenance Results * COLONOSCOPY (10/04/2017) Nolan Tolbert DO PROCEDURE/MINOR SURGICAL ORDERA BLES Final Result from Last 3 Months or Most Recently Relevant to Health Maintenance Care Teams Sales Professional Bilingual Relationship Specialty Start Date End Date Elio Tanner MD PCP - General Internal Medicine 01/17/17
--- OUTSIDE RECORDS SUMMARY | 2025-04-21 10:56 | XMS_ITS | Clinical Summary ---
Author Organization [facility] Address [address] [place] [address] Care Team Providers Care Organizational Development Consultant Name Role Phone Justin Olvera MD Primary Care Provider [phone] Source Comments [facility],non-owned Affiliates and Associated Physician Practices is amultiple site organization consisting of ambulatory clinics and hospital sitesin [place], [place], [place] and [place]. This disclosure is being madepursuant to the Care Everywhere program and may not contain all information available regarding this patient. Last updated 18.[facility] Allergies No known active allergies Medications * Be aware that medications may not be up to date on this document. Alwaysverify current medications with the patient. aspirin (ASPIRIN) 81 MG tablet Take 81 [...] Active Exenatide ER (BYDUREON BCISE) 2 MG/0.85ML MANINDER Activ e losartan-hydroC HLOROthiazide (HYZAAR) 100-12.5 MG tablet Take 1 tablet by mouth once daily Active oxybutynin (DITROPAN) 5 MG tablet Take 5 mg by mouth 3 times daily Active Immunizations Immunization Administration Dates Next Due INFLUENZA VACCINE, QUADR. (F LUZONE; FLULAVAL; FLUARIX; AFLURIA QUADRIVALENT; 6MO+), 0.5 ML (IIV4) 02/20/2019 Social History Tobacco Use Types Packs/Day Years Used Date Smoking Tobacco: Never Assessed Comments Unknown Sex and Gender Information Value Date Recorded Sex Assigned at Not on file Legal Sex Female 10:24 AM CDT Gender Identity Not on file [...] 04/14/1971 DTAP/TDAP/TD VACCINES (1 - Tdap) 1972 PNEUMOCOCCAL VACCINE 50+ (1 of 1 - PCV) 2003 ZOSTER VACCINE (1 of 2) 2003 DEPRESSION SCREENING 05/07/2024 MEDICARE AWV CALENDAR YEAR 2024 COVID-19 VACCINE (1 - 2024-2 6 season) 2025 INFLUENZA VACCINE (#1) 2025 02/20/2019 Respiratory Syncytial Virus (RSV) Vaccine Pt: [...] patient's age to complete this topic MENINGOCOCCAL (Group B) VACC INE SHARED DECISION-MAKING Aged Out No longer eligibl e based on patient's age to complete this topic MENINGOCOCCAL GROUPS A/C/Y/W VACCINE Aged Out No longer eligible b ased on patient's age to complete this topic Insurance * Guarantor: CYNTHIA CASTILLO Account Type Relation to Patient Date of Phone Billing Address Personal/Family [address] [place] [address] SELF PAY NO INSURANCE Member Subscriber Plan / Payer (Ef fective for All Dates) Name:Cynthia Castillo Member ID:Not on file Relation to Subscriber:Not on file Name:CYNTHIA CASTILLO Subscriber ID:Not on file (Home) Address: [address] [place] [address] Payer ID:Not on file Group ID:Not on file Type:Self Pay Address: [facility] MANAGED MEDICARE ADV * Guarantor: CYNTHIA CASTILLO Account Type Relation to Patient Date of Phone Billing Address Personal/Family [address] [place] [address] SELF PAY NO INSURANCE Member Subscriber Plan / Payer (Ef fective for All Dates) Name:Cynthia Castillo Member ID:Not on file Relation to Subscriber:Not on file Name:RAFFAELEAIDENCYNTHIA Subscriber ID:Not on file (Home) Address: [address] [place] [address] Payer ID:Not on file Group ID:Not on file Type:Self Pay Address: [facility] MANAGED MEDICARE ADV * Guarantor: CYNTHIA CASTILLO Account Type Relation to Patient Date of Phone Billing Address Personal/Family [address] [place] [address] SELF PAY NO INSURANCE Member Subscriber Plan / Payer (Ef fective for All Dates) Name:Cynthia Castillo Member ID:Not on file Relation to Subscriber:Not on file Name:CYNTHIA CASTILLO Subscriber ID:Not on file (Home) Address: [address] [place] [place] [address] Payer ID:Not on file Group ID:Not on file Type:Self Pay Address: [facility] MANAGED MEDICARE ADV Care Teams Organizational Development Consultant Relationship Specialty Start Date End Date Justin Olvera MD [address] [place] [id number] PCP - General Internal Medicine 02/20/19
== END 2025-04-21 09:43 | disposition home or self-care (01) ==
PROVIDERS: PCP Nurse Practitioner; Visit Provider Obstetrics & Gynecology
DX: Z12.31 Encounter for screening mammogram for malignant neoplasm of breast (principal)
CPT/HCPCS: 77063; 77067